=== PATIENT | female | born 1940 | race Caucasian/White ===

== ENCOUNTER 2023-05-01 14:38 | Inpatient (IN) | payer MEDICARE, OTHER, SELFPAY ==
[2023-05-01] VITALS (13 sets, daily range): BP systolic 98–139; BP diastolic 37–83; BMI 34.0; BMI 35.0
--- NOTE | 2023-05-01 08:40 | ED.GENMED ---
History of Present Illness
General
Chief Complaint: Weakness
Source: patient and ambulance crew
Exam Limitations: none
Time Seen by Provider: 05/01/23 08:39
Nursing documentation reviewed up to this point in time: agreed with
History of Present Illness
History of Present Illness:
82 yo female w h/o HTN, HLD, DE, GERD, Colitis, NIDDM, Hypothyroid, presents from home for feeling weak, frequent urination, past 2-3 days, nausea intermittently, given Zofran en route and states it has helped. States 'I was very very weak, I could
not dress myself, while I was getting dressed I had to just sit on the floor.' arrives and states she was 'sweaty and weak and could not get up of the floor, she had difficulty breathing and was wheezing.'
Denies CP, denies SOB at this time. Denies abd pain. Has had good appetite.
Past History
Past History
ED Past Medical History: GERD, HTN, Hypercholesterolemia, NIDDM, DE, Hypothyroidism, Psychiatric (Depression, Anxiety), Other (Back pain, Headaches, GI bleeding, Hiatal hernia, UTI, Cataractsm Glaucoma, Anemia, Polymyralgiarhematic) and Other
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
ED Past Surgical History: Cardiac (08/09/21 Stents X 2), Cholecystectomy, Gynecological (Hysterectomy, tubal ligation, Oophorectomy one sided), Orthopedic (Barney carpal tunnel, ), Tonsilectomy and Other (Bilateral carpal tunnel surgery)
Social History
Tobacco: Former smoker
Alcohol: Occasional
Drug: None
Personal:
Living: with family
Employment: Retired
Family History
Family History: Diabetes; Negative Early CAD
Review of Systems
Review of Systems
Allergies reviewed?: Yes
All Other Systems: ROS reviewed and negative except as documented in HPI and ROS
Constitutional: Reports fatigue; Denies fever
Respiratory: Denies trouble breathing
Cardiac: Denies chest pain or syncope
ABD/GI: Reports nausea and vomiting; Denies abdominal pain or diarrhea
: Reports frequency; Denies dysuria
Musculoskeletal: Denies edema
Skin: Reports no symptoms
Neurological: Reports no symptoms
Phy Exam
Physical Exam
Physical Exam:
GENERAL: No acute distress. A&Ox3.
CONSTITUTIONAL: Afebrile.
EYES: PERRL, conjunctivae normal
ENMT: moist mucus membranes, Pharynx nl
RESPIRATORY: Regular respirations, nonlabored, lungs clear.
CARDIOVASCULAR: Regular rate and rhythm, no murmurs, no rubs.
GI: Soft, nontender, normal BS
MUSCULOSKELETAL: Moves with ease. Well perfused. No edema
SKIN: Warm, dry, pale
PSYCH: Normal mood and affect. Well kept, interactive and appropriate
NEUROLOGIC: Awake, alert and oriented. No focal neurological deficits
Course
Orders/Labs/Results
Orders:
Orders
05/01/23
Electrocardiogram (*1) Stat
Comment: ALREADY DONE ER
05/01/23 Breakfast
1800 calorie (15 carb) Diabetic
At Your Request: Full Participation
05/01/23 08:47
Complete Blood Count/With Diff Urgent
Comprehensive Metabolic Panel Urgent
Creatine Phosphokinase Urgent
Comment: ADD ON
Glycohemoglobin (HgbA1c) Urgent
NT-proBNP Urgent
Comment: ADD ON
Troponin I Urgent
05/01/23 09:07
Lactic Acid Q4H
Comment: CANCEL 2nd LACTIC ACID IF 1st LACTIC ACID IS LESS THAN 2
Blood Culture Q30M
MAX Source: Blood/Venous
Specimen Description:
Blood Culture Q30M
MAX Source: Blood/Venous
Specimen Description:
05/01/23 09:29
CR Chest Portable - 1 View Urgent
Comment:
Reason For Exam: Weakness, elevated Troponin
Reason Study Needs to be Portable: Patient Unstable
05/01/23 09:34
Add On- LAB Urgent
Tests Added?: BNP
05/01/23 09:36
0.9% Sodium Chloride 1000 ml [Nss] 1,000 ml IV BOLUS
05/01/23 09:38
COVID-19 Antigen Urgent
Source: Nasal Swab
Influenza A+B Rapid Molecular Urgent
MAX Source: Nasal Swab
Specimen Description:
05/01/23 09:52
Add On- LAB Urgent
Tests Added?: CPK
05/01/23 09:53
Piperacillin/Tazo 3.375 Gram [Zosyn] 3.375 gram in 50 ml IV NOW
05/01/23 10:27
Urinalysis Reflex To Culture Urgent
Date Specimen was Collected: 05/01/23
Time Specimen was Collected: 10:26
Urine Microscopic Reflex Cult Urgent
Urine Culture Urgent
MAX Source: U
Specimen Description:
Date Specimen was Collected: 05/01/23
Time Specimen was Collected: 10:26
05/01/23 11:21
Vancomycin [Vancocin] 1,250 mg 0.9% Sodium Chloride 250 ml [Nss] 250 ml IV NOW
05/01/23 12:54
Lactic Acid Q4H
Comment: CANCEL 2nd LACTIC ACID IF 1st LACTIC ACID IS LESS THAN 2
05/01/23 14:08
Admit/Transfer Patient As Directed
Co-Sign Provider:
Level of Care: Inpatient admission
Assign to:: Telemetry
Physician / Group: Aliza Rashid
Diagnosis: Sepsis UTI
Reason for Telemetry: Arrhythmia
Date to Stop Telemetry: 05/04/23
Time to Stop Telemetry: 11:00
Reason for Hospitalization: Sepsis UTI
Expected length of stay greater than two midnights?: Yes
ELOS- Estimated Length of Stay in days: 2
I certify the patient meets the requirements for IP care: Yes
05/01/23 14:23
Code Status As Directed
Resuscitation Status: Full Code
05/01/23 17:37
Acetaminophen with Codeine [Tylenol #3] 1 tablet PO BID PRN
Lorazepam [Ativan] 0.5 mg PO Q6HPRN PRN
05/01/23 17:37
Activity As Directed
Activity Level: With Assistance
Intake/ Output As Directed
Frequency: Per unit guidelines
Precautions As Directed
Type of Precautions: Other
Comment: fall precautions
Vital Signs As Directed
Frequency: Per unit guidelines
Weight As Directed
Frequency: Daily
DX Deep Vein Thrombosis Video Routine
05/01/23 18:00
Enoxaparin Sodium [Lovenox] 40 mg SC QPM
Glimepiride [Amaryl] 2 mg PO QPM
Piperacillin/Tazo 3.375 Gram [Zosyn] 3.375 gram in 50 ml IV Q6
Rosuvastatin Calcium [Crestor] 20 mg PO QPM
05/01/23 20:00
Carvedilol [Coreg] 6.25 mg PO BID
05/01/23 22:00
Bimatoprost [Lumigan 0.01%] 1 drop BOTH EYES HS
Melatonin 5 mg PO HS
05/02/23 05:55
Basic Metabolic Panel IN AM
Complete Blood Count/No Diff IN AM
Magnesium IN AM
05/02/23 06:00
Levothyroxine [Synthroid] 125 mcg PO DAILY@0600
05/02/23 08:00
Aspirin Chewable [Low Strength Aspirin] 81 mg PO DAILY
Cholecalciferol (Vitamin D3) [VITAMIN D3 (cholecalciferol)] 50 mcg PO DAILY
Cyanocobalamin [Vitamin B-12] 1,000 mcg PO DAILY
Duloxetine Delayed Release [Cymbalta Delayed Release] 60 mg PO DAILY
Furosemide [Lasix] 20 mg PO DAILY
Glimepiride [Amaryl] 4 mg PO DAILY
Lactobac/Bifidobac [Visbiome] 1 cap PO DAILY
Pantoprazole [Protonix] 40 mg PO DAILY
phenazopyridine 95 mg PO DAILY
05/02/23 12:00
Calcium Carbonate [[place] 500] 1,000 mg PO NOON
Ferrous Sulfate [Feosol] 325 mg PO NOON
Vitamin B Complex with C [B COMPLEX w/VITAMIN C] 1 caplet PO NOON
05/03/23 06:00
Basic Metabolic Panel IN AM
Complete Blood Count/No Diff IN AM
Magnesium IN AM
05/04/23 06:00
Basic Metabolic Panel IN AM
Complete Blood Count/No Diff IN AM
Magnesium IN AM
05/04/23 11:00
DC Protocol for Telemetry ONCE
05/05/23 06:00
Basic Metabolic Panel IN AM
Complete Blood Count/No Diff IN AM
Magnesium IN AM
05/06/23 06:00
Basic Metabolic Panel IN AM
Complete Blood Count/No Diff IN AM
Magnesium IN AM
05/07/23 06:00
Basic Metabolic Panel IN AM
Complete Blood Count/No Diff IN AM
Magnesium IN AM
05/08/23 06:00
Basic Metabolic Panel IN AM
Complete Blood Count/No Diff IN AM
Magnesium IN AM
Abnormal Lab Results
05/01/23 05/01/23 05/01/23
08:47 09:07 10:27
Absolute Neuts (auto) 8.1 H 10^3/uL
(1.4-6.5)
Absolute Lymphs (auto) 0.4 L 10^3/uL
(1.2-3.4)
Neutrophils % 91.8 H %
(42.2-75.2)
Lymphocytes % 4.6 L %
(20.5-51.1)
Carbon Dioxide 21 L mmol/L
(22-30)
BUN 18 H mg/dl
(7-17)
Glucose 207 H mg/dl
(70-99)
Hemoglobin A1c 7.6 H %
(4.0-5.6)
Lactic Acid 3.5 H mmol/L
(0.7-2.0)
Troponin I 0.572 H* ng/ml
Total Protein 6.1 L g/dl
(6.3-8.2)
Urine Ketones 1+ A
(Negative)
Ur Occult Blood Reflex 2+ A
(Negative)
Leukocyte Esterase Rfl 2+ A
(Negative)
Urine RBC 3-6 A /HPF
(0-2)
Urine WBC (Reflex) 70-80 A /HPF
(0-5)
Urine Bacteria (Reflex) Many A
(Negative)
Urine Glucose 1+ A
(Negative)
Urine Albumin (Reflex) 1+ A
(Neg - Trace)
05/01/23 08:47
05/01/23 08:47
Vital Signs
Initial and Last Documented VS:
Initial Vital Signs
Temp Pulse Resp BP Pulse Ox
99.7 F 97 18 107/82 95
05/01/23 08:38 05/01/23 08:38 05/01/23 08:38 05/01/23 08:38 05/01/23 08:38
Last Documented Vital Signs
Temp Pulse Resp BP Pulse Ox
97.4 F 63 16 116/57 97
05/02/23 11:38 05/02/23 11:38 05/02/23 11:38 05/02/23 11:38 05/02/23 11:38
MDM/Problems Addressed
Differential Diagnosis Includes:
UTI, dehydration, DE, sepsis
MDM/Problems Addressed:
82 yo female w h/o HTN, HLD, DE, GERD, Colitis, NIDDM, Hypothyroid, presents from home for feeling weak, frequent urination, past 2-3 days, nausea intermittently, given Zofran en route and states it has helped. States 'I was very very weak, I could
not dress myself, while I was getting dressed I had to just sit on the floor.' arrives and states she was 'sweaty and weak and could not get up of the floor, she had difficulty breathing and was wheezing.'
Denies CP, denies SOB at this time. Denies abd pain. Has had good appetite.
Temp 99 4. Patient states she took Tylenol at 8:00 AM
EKG: NSR
05/01/2023 0926 AM
CBC normal
CMP with no clinically significant abnormality
Troponin elevated at 0.572 patient has no chest pain, most likely elevation due to sepsis
Lactic acid: elevated 3.5 (sepsis and dehydration most likely cause)
RN reports pulse ox 88 O2, placed on 2 L nasal cannula O2 with improved pulse ox at 95%
Patient most likely septic with shaking teeth chattering chills reported, fever, frequent urination
Treating as urosepsis for now no hypotension no tachycardia, no sign of shock
Case discussed with Dr. Young who agrees with assessment and plan
05/01/2023 1130 AM
UA: 2+ leukocytes, negative nitrates, WBC 70-80, many bacteria
Hospitalist notified of admission
Chronic conditions affecting care: DM and HTN
*Pulse Oximetry
Patient hypoxic: yes
Comment: 88% RA, placed on 2L NC O2
*EKG
EKG Intrepretation Date: 05/01/23
Interpretation: abnormal
Rate: normal
Rhythm: sinus
Machias: left axis deviation
Interval: normal interval
QRS Pattern: normal QRS
Ischemia: no ischemia
*Critical Care Note
Total Time (30-74mins, 75-104mins- exclusive of procedures): Not Applicable
ED Attending Note
-
Portions of this chart may have been created with voice recognition software.� Occasional wrong word or��sound alike� substitutions may have occurred due to the inherent limitations of voice recognition software.
Discharge Plan
Departure
Patient Disposition: Admit
Date of Disposition: 05/01/23
Time of Disposition: 11:39
Admit to: Telemetry
Presentation/result/management discussed w/ accepting MD/DO: Hospitalist
Condition: Fair
Discharge Problem:
Sepsis, Acute UTI, Elevated troponin
Interventions
Interventions:
*General Assessment Last Done: 05/01/23 08:38
*Neglect/Abuse Screening Last Done: 05/01/23 08:38
ED- Fall Risk Assessment Last Done: 05/01/23 09:04
*Nursing Disposition Last Done: 05/01/23 17:24
ED- Cardiac Assessment Last Done: 05/01/23 09:05
ED- Neurological Assessment Last Done: 05/01/23 09:05
ED- Pulmonary Assessment Last Done: 05/01/23 09:05
Discharge Date and Time
Discharge Date/Time: 05/01/23 17:30
[2023-05-01 09:04] LABS: % Basophils 0.1 % (0-2); % Eosinophils 0.1 % (0-6); % Immature Granulocytes 0.5 % (0-0.5); % Lymphocytes 4.6 % (20.5-51.1); % Monocytes 2.9 % (1.7-9.3); % Neutrophils 91.8 % (42.2-75.2); Absolute Lymphocytes 0.4 10^3/uL (1.2-3.4); Absolute Monocytes 0.3 10^3/uL (0.1-0.6); Absolute Neutrophils 8.1 10^3/uL (1.4-6.5); Hematocrit 43.8 % (37.0-47.0); Hemoglobin 14.7 g/dL (12.0-16.0); Mean Corp Hgb Conc. 33.6 g/dL (33.0-37.0); Mean Corpuscular Hgb 29.9 pg (27.0-31.0); Mean Corpuscular Volume 89.2 fL (81.0-99.0); Mean Platelet Volume 9.6 fL (7.4-10.4); Nucleated Red Blood Cells % 0 %; Platelet Count 169 10^3/uL (130-400); Red Blood Cell Count 4.91 10^6/uL (4.20-5.40); Red Cell Dist. Width 13.5 % (11.5-14.5); White Blood Cell Count 8.8 10^3/uL (4.8-10.8)
[2023-05-01 09:14] LABS: ALT (SGPT) 19 U/L (0-35); AST (SGOT) 28 U/L (14-36); Albumin 3.6 g/dl (3.5-5.0); Alkaline Phosphatase 91 U/L (38-126); Blood Urea Nitrogen 18 mg/dl (7-17); Calcium 9.5 mg/dl (8.4-10.2); Carbon Dioxide 21 mmol/L (22-30); Chloride 105 mmol/L (98-107); Estimated Creatinine Clearance 42 ml/min; Glucose 207 mg/dl (70-99); Potassium 3.5 mmol/L (3.5-5.1); Sodium 135 mmol/L (135-145); Total Bilirubin 1.3 mg/dl (0.2-1.3); Total Protein 6.1 g/dl (6.3-8.2); eGFR 56.25
[2023-05-01 09:26] LABS: Troponin I 0.572 ng/ml
[2023-05-01 09:32] LABS: Lactic Acid 3.5 mmol/L (0.7-2.0)
[2023-05-01] MEDS: NSS 1000 IV (09:42)
[2023-05-01 10:00] LABS: COVID-19 Antigen Negative (Negative)
[2023-05-01] MEDS: ZOSYN 50 IV ×3 (10:27→23:01)
[2023-05-01 10:54] LABS: Urine Albumin 1+ (Neg - Trace); Urine Bilirubin Negative (Negative); Urine Character Slightly Cloudy (Clear); Urine Color Yellow; Urine Glucose 1+ (Negative); Urine Ketone 1+ (Negative); Urine Leukocyte 2+ (Negative); Urine Nitrite Negative (Negative); Urine Occult Blood 2+ (Negative); Urine Urobilinogen Negative (Neg - 1+)
[2023-05-01 11:19] LABS: Urine Mucus Few
[2023-05-01 11:22] LABS: Urine Amorphous Seen; Urine Bacteria Many (Negative); Urine White Cell 70-80 /HPF (0-5)
[2023-05-01] MEDS: VANCOCIN 275 MG IV (12:30)
--- NOTE | 2023-05-01 12:48 | HPS.HSE ---
Family Physician
-
Family Physician: Wes Garza
Chief Complaint
-
weakness
History of Present Illness
82F HTN HLD [place] GERD Colitis NIDDM, Hypothyroid p/w weakness, urinary frequency, chills, intermittent nausea, bodyaches arthritic pain exacerbation past 2-3 days. was prompted to contact EMS when he found sitting on the floor in the
morning short of breath wheezing and unable to get up. Denied fall, loss of consciousness, trauma, constipation, diarrhea, fever, recent unexpect weight loss or weight gain. VSS, No leukocytosis noted. Mild hyperglycemia. Initial Lactic
acidosis elevation 3.5 resolved with IVF bolus. Troponin was also noted elevated 0.572 however chest pain free no acute changes noted on EKG.
Medical History
Past Medical History
Past Medical History: Reports Other (as above)
Past Surgical History: Reports Other (as above)
Social History
Tobacco: Non-smoker
Alcohol: Occasional
Drug: None
Personal:
Living: With Family
Family History
Family History: Not pertinent (reviewed)
Allergies / Home Medications
Allergies reflects when Allergies were last updated in [employer].
Home Medications with original date entered in [employer]
Allergy/Medication List:
Allergies
Allergy/AdvReac Type Severity Reaction Status Date / Time
ciprofloxacin [From Cipro] Allergy caused Verified 05/01/23 08:45
tendinitis
in right
achilles
tendon
erythromycin base Allergy abd pain Verified 05/01/23 08:45
metformin Allergy Nausea / Verified 05/01/23 08:45
Vomiting
Home Medications
vitamin B complex (B-Complex tablet) 1 tab PO NOON Supplement 11/01/07
duloxetine 60 mg capsule,delayed release 60 mg PO DAILY Neurological Condition 12/25/12
lorazepam 0.5 mg tablet 0.5 mg PO Q6HPRN PRN anxiety 09/21/20
melatonin 5 mg tablet 5 mg PO HS Sleep 09/25/20
cholecalciferol (vitamin D3) 50 mcg (2,000 unit) tablet 2,000 units PO DAILY #30 tabs 09/28/20
acetaminophen 300 mg-codeine 30 mg tablet 1 tab PO BID PRN MODERATE PAIN ##0 08/10/21
bimatoprost 0.01 % eye drops (Lumigan) 1 drp BOTH EYES HS Eye condition 08/10/21
ferrous sulfate 325 mg (65 mg iron) tablet (FeroSul) 325 mg PO NOON Supplement 08/10/21
aspirin 81 mg chewable tablet 81 mg PO DAILY 08/11/21
carvedilol 6.25 mg tablet 6.25 mg PO BID Heart disease/condition #60 tabs 08/11/21
rosuvastatin 20 mg tablet 20 mg PO QPM High cholesterol #30 tabs 08/11/21
cyanocobalamin (vitamin B-12) 1,000 mcg tablet 1,000 mcg PO DAILY #30 tabs 09/18/21
pantoprazole 40 mg tablet,delayed release (Protonix) 40 mg PO DAILY Gastrointestinal issue 12/28/21
furosemide 20 mg tablet 20 mg PO DAILY #90 tabs 12/29/21
Lactobacillus 40-Bifidobact 3-S.thermophilus 100 billion cell capsule (Probiotic) 1 cap PO DAILY 05/01/23
calcium carbonate 600 mg calcium (1,500 mg) tablet (Calcium) 1,200 mg PO NOON 05/01/23
raul (Zingiber officinalis) 550 mg capsule 550 mg PO QPM 05/01/23
glimepiride 4 mg tablet 2 mg PO QPM 05/01/23
glimepiride 4 mg tablet 4 mg PO DAILY 05/01/23
levothyroxine 125 mcg tablet 125 mcg PO DAILY 05/01/23
phenazopyridine 95 mg tablet 95 mg PO DAILY 05/01/23
semaglutide 0.25 mg or 0.5 mg (2 mg/3 mL) subcutaneous pen injector (Ozempic) 0.5 mg SC TU 05/01/23
zinc 50 mg tablet 50 mg PO NOON 05/01/23
Review of Systems
-
A 12 point ROS was completed and negative except as noted: Yes
Constitutional: Reports Other (as below)
Physical Exam
Vital Signs
Vital Signs
Temp Pulse Resp BP Pulse Ox
99.7 F 95 20 98/54 91
05/01/23 08:38 05/01/23 12:30 05/01/23 12:30 05/01/23 12:00 05/01/23 12:30
Physical Exam
General: Other (as below)
Laboratory Results
-
05/01/23 08:47
05/01/23 08:47
Laboratory Results
Lactic Acid 3.5 mmol/L (0.7-2.0) H 05/01/23 09:07
Total Bilirubin 1.3 mg/dl (0.2-1.3) 05/01/23 08:47
AST 28 U/L (14-36) 05/01/23 08:47
ALT 19 U/L (0-35) 05/01/23 08:47
Alkaline Phosphatase 91 U/L (38-126) 05/01/23 08:47
Troponin I 0.572 ng/ml H* 05/01/23 08:47
Impression/Plan
-
ROS
General: Denies fever night sweats unexpected weight loss reports chills
Neuro: Denies seizure shaking loss of consciousness dizziness vertigo
Psych: denies depression hallucinations confusion manic episodes
HEENT: Denies blindness visual disturbances epistaxis
Pulmonary: denies coughing hemoptysis sneezing reports exertional dyspnea
Cardiovascular: denies chest pain palpitations leg swelling
Hematology: denies signs symptoms of anemia easy bruising/bleeding
Gastrointestinal: reports nausea episode vomiting denies diarrhea constipation hematemesis hematochezia melena
Genito-Urinary: reports urinary frequency denies dysuria
Musculoskeletal: denies joint pain weakness
Dermatology: denies rash laceration bruising
Physical Exam
General: No pallor, cyanosis, or jaundice. Obese
HEENT: Throat clear. PERRLA Normocephalic atraumatic
NECK: Supple. No JVD Carotid Bruits
RESPIRATORY: Lungs clear to auscultation. No crackles wheezes stridor
CVS: S1, S2 normal. RRR. No murmur, rub or gallop.
ABDOMEN: Soft, non-tender. No distension. BS+/normal.
EXTREMITIES: No peripheral cyanosis or edema.
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
IMPRESSION:
82F HTN HLD [place] GERD Colitis NIDDM, Hypothyroid p/w weakness, urinary frequency, chills, intermittent nausea, bodyaches arthritic pain exacerbation past 2-3 days. was prompted to contact EMS when he found sitting on the floor in the
morning short of breath wheezing and unable to get up. Denied fall, loss of consciousness, trauma, constipation, diarrhea, fever, recent unexpect weight loss or weight gain. VSS, No leukocytosis noted. Mild hyperglycemia. Initial Lactic
acidosis elevation 3.5 resolved with IVF bolus. Troponin was also noted elevated 0.572 however chest pain free no acute changes noted on EKG.
PLAN:
#Sepsis UTI
#non-ischemic troponin elevation due to sepsis
Inpt Tele
trend Troponin to peak
Empiric abx vancomycin zosyn
follow cultures
Tylenol prn
#Lactic acidosis possibly d/t dehydration vs sepsis
resolved with IVF
#HTN
cont Coreg Lasix with Holding Parameters
#CAD
#HLD
cont statin asa
#GERD
cont protonix
#NIDDM
follow up A1c
cont glimeripide
low dose sliding scale
On Ozempic Tues
#Hypothyroid
cont home synthroid
follow up TSH reflex T4
dvt ppx Lovenox
GI ppx Protonix
meds reconciled and resumed as appropriate
Full Code
discussed with patient and her Mauricio
I spent a total of 80 minutes with the patient or on the floor. More than 50% of this time involved counseling and coordination of care.
[2023-05-01 13:17] LABS: Lactic Acid 1.4 mmol/L (0.7-2.0)
[2023-05-01 13:41] LABS: Creatine Phosphokinase 97 U/L (30-135)
[2023-05-01 13:54] LABS: NT-proBNP 840 pg/ml
[2023-05-01] MEDS: CRESTOR 20 MG PO (18:37)
[2023-05-01] MEDS: LOVENOX 40 MG SC (18:37)
[2023-05-01] MEDS: AMARYL 2 MG PO (19:04)
--- NOTE | 2023-05-01 19:16 | PHA.VAN.IN ---
Assessment
- Assessment
Renal Function: Appears similar to baseline (Slightly elevated- baseline from 2021 0.6 to 0.9)
Concomitant Antimicrobials: Piperacillin/tazobactam
AUC Dosing Plan
- Dosing Variables
Dosing Weight (kg): 81.25
Dosing CrCl (ml/min): 41
Vd coefficient (L/kg): 0.7
- Empiric Dosing
Initial / Loading Dose: Vancomycin 1250mg IV on 05/01/23 at 1230
Maintenance Regimen: Vancomycin 1000mg IV Q24h to start 05/01 at 0600
Estimated AUC (mcg*h/mL): 464
Estimated Peak (mcg*h/mL): 29
Estimated Trough (mcg/ml): 12
Estimated Half Life (H): 18
- Monitoring
No levels ordered at this time: Will f/u and order levels prior to steady state.
Pharmacokinetics Vancomycin I
- -
Patient Age: 82
Patient Sex: Female
Vancomycin Day #: 1
Indication: Genito-Urinary Tract
Requesting Provider: Dr. Rashid
Pertinent Antimicrobial Allergies:
ciprofloxacin [From Cipro] Allergy (Verified 05/01/23 08:45)
caused tendinitis in right achilles tendon
erythromycin base Allergy (Verified 05/01/23 08:45)
abd pain
Height / Weight:
Height 5 ft
Actual Weight 81.25 kg
Pertinent Past Medical History: BMI ~35
- Vital Signs / Lab Results
Temp Pulse Resp BP Pulse Ox
98.6 F 84 18 139/66 97
05/01/23 17:30 05/01/23 17:30 05/01/23 17:30 05/01/23 17:30 05/01/23 17:30
Lab Results - Hematology
05/01/23
08:47
WBC 8.8
Lab Results - Chemistry
05/01/23
08:47
BUN 18 H
Creatinine 1.0
Estimated Creat Clear 42
Albumin 3.6
05/01/23 05/01/23
09:07 12:54
Lactic Acid 3.5 H 1.4
Lab Results - Urine
05/01/23
10:27
Urine Nitrite (Reflex) Negative
Leukocyte Esterase Rfl 2+ A
Urine WBC (Reflex) 70-80 A
Ur Squamous Epith Cells 3-5
Urine Bacteria (Reflex) Many A
Microbiology Results
05/01/23 09:38 Influenza Types A & B (EMELYN) - Final
Nasal Swab Negative for Influenza A & B, NAAT
Negative results must be combined with clinical observations
and patient history.
Nucleic Acid Amplification test (NAAT)performed on the
[employer] platform.
[2023-05-01] MEDS: COREG 6.25 MG PO (20:15)
[2023-05-01] MEDS: LUMIGAN 0.01% 1 DROP BOTH EYES (22:06)
[2023-05-01] MEDS: MELATONIN 5 MG PO (22:06)
[2023-05-02 03:00] VITALS: BP 105/56
[2023-05-02] MEDS: ZOSYN 50 IV ×3 (05:52→17:51)
[2023-05-02] MEDS: SYNTHROID 125 MCG PO (05:53)
[2023-05-02 06:00] VITALS: BMI 35.0
[2023-05-02 06:12] LABS: Hematocrit 36.1 % (37.0-47.0); Hemoglobin 12.3 g/dL (12.0-16.0); Mean Corp Hgb Conc. 34.1 g/dL (33.0-37.0); Mean Corpuscular Hgb 29.8 pg (27.0-31.0); Mean Corpuscular Volume 87.4 fL (81.0-99.0); Mean Platelet Volume 9.7 fL (7.4-10.4); Platelet Count 152 10^3/uL (130-400); Red Blood Cell Count 4.13 10^6/uL (4.20-5.40); Red Cell Dist. Width 13.5 % (11.5-14.5)
[2023-05-02] MEDS: VANCOCIN 200 IV (06:29)
[2023-05-02 06:46] LABS: Blood Urea Nitrogen 24 mg/dl (7-17); Calcium 8.4 mg/dl (8.4-10.2); Carbon Dioxide 25 mmol/L (22-30); Chloride 101 mmol/L (98-107); Estimated Creatinine Clearance 37 ml/min; Glucose 213 mg/dl (70-99); Magnesium 1.8 mg/dl (1.6-2.3); Phosphorus 3.3 mg/dl (2.5-4.5); Potassium 3.6 mmol/L (3.5-5.1); Sodium 134 mmol/L (135-145); eGFR 50.17
[2023-05-02 07:14] LABS: TSH Reflex To Free T4 0.68 uIU/ml (0.47-4.68)
[2023-05-02 07:22] VITALS: BP 113/57
--- NOTE | 2023-05-02 07:34 | W.PN.HOSP.TC ---
Today's Communication/Plan
-
cont abx
IVF gentle hydration, pending CT abd/pelvis with Contrast
Cardio ID eval requested
trend Troponin
glycemic control
Assessment / Plan
Assessment / Plan
Physical Exam
General: No pallor, cyanosis, or jaundice. Obese. no acute distress but appears unwell/uncomfortable denies chest pain
HEENT: Throat clear. PERRLA Normocephalic atraumatic
NECK: Supple. No JVD Carotid Bruits
RESPIRATORY: Lungs clear to auscultation. No crackles wheezes stridor, on Nasal cannula 2L
CVS: S1, S2 normal. RRR.� No murmur, rub or gallop.
ABDOMEN: Soft, non-tender. No distension. BS+/normal.
EXTREMITIES: No peripheral cyanosis or edema.
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
IMPRESSION:
82F HTN HLD [place] 2021 two stents placed GERD Colitis NIDDM, Hypothyroid p/w weakness, urinary frequency, chills, intermittent nausea, bodyaches arthritic pain exacerbation past 2-3 days.� was prompted to contact EMS when he found sitting
on the floor in the morning short of breath wheezing and unable to get up.� Denied fall, loss of consciousness, trauma, constipation, diarrhea, fever, recent unexpect weight loss or weight gain.� VSS,� No leukocytosis noted.� Mild hyperglycemia.�
Initial Lactic acidosis elevation 3.5 resolved with IVF bolus.� Troponin was also noted elevated 0.572 however chest pain free no acute changes noted on EKG.
PLAN:
#Sepsis UTI
#non-ischemic troponin elevation due to sepsis
#Hx CAD GA 2021 two stents placed
Inpt Tele
trend Troponin to peak, significant elevation in AM noted 3.310 from 0.572, remains chest pain free, VSS, repeat EKG noted new T wave inversions anterior lead compared with EKG on admission, otherwise no acute ST elevations or depressions noted
Cardio eval requested
Empiric abx vancomycin zosyn
follow cultures prelim positive blood, pending identification, blood cultures repeated
ID eval requested
Tylenol prn
#Lactic acidosis possibly d/t dehydration vs sepsis
resolved with IVF
#HTN
cont Coreg Lasix with Holding Parameters
#CAD
#HLD
cont statin asa
#GERD
cont protonix
#NIDDM
follow up A1c
cont glimeripide
low dose sliding scale
On Ozempic Tues
#Hypothyroid
cont home synthroid
follow up TSH reflex T4
dvt ppx Lovenox
GI ppx Protonix
Full Code
I spent a total of � 55 � minutes with the patient or on the floor. More than 50% of this time involved counseling and coordination of care.
Anticipated Discharge: > 48 hours
Subjective/Interval History
-
Date of Service: May 02, 2023
General malaise poor appetite denies chest pain.
Objective Data
-
Labs:
Laboratory Results
05/02/23
05:55
WBC 14.0 H
Hgb 12.3
Hct 36.1 L
Plt Count 152
Sodium 134 L
Potassium 3.6
Chloride 101
Carbon Dioxide 25
BUN 24 H
Creatinine 1.1 H
Glucose 213 H
Calcium 8.4
Vital Signs:
Vital Signs
Temp Pulse Resp BP Pulse Ox
100.4 F H 77 18 105/56 99
05/02/23 03:00 05/02/23 03:00 05/02/23 03:00 05/02/23 03:00 05/02/23 03:00
I&O
05/01/23 05/02/23 05/03/23
05:59 06:59 06:59
Intake Total
Balance
[2023-05-02 07:42] LABS: Glucose - Point of Care 240 mg/dl (70-99)
[2023-05-02] MEDS: TYLENOL 650 MG PO ×2 (08:26→17:51)
[2023-05-02] MEDS: AMARYL 4 MG PO (08:27)
[2023-05-02] MEDS: LASIX 20 MG PO (08:27)
[2023-05-02] MEDS: VISBIOME 1 CAP PO (08:27)
[2023-05-02] MEDS: VITAMIN D3 (cholecalciferol) 50 MCG PO (08:27)
[2023-05-02] MEDS: NOVOLOG FLEXPEN-LOW RESISTANCE 2 UNITS SC ×3 (08:27→17:52)
[2023-05-02] MEDS: PROTONIX 40 MG PO (08:27)
[2023-05-02] MEDS: COREG 6.25 MG PO ×2 (08:27→22:46)
[2023-05-02] MEDS: LOW STRENGTH ASPIRIN 81 MG PO (08:27)
[2023-05-02] MEDS: CYMBALTA DELAYED RELEASE 60 MG PO (08:27)
[2023-05-02] MEDS: VITAMIN B-12 1000 MCG PO (08:27)
[2023-05-02] MEDS: NSS 1000 IV ×2 (08:40→20:03)
[2023-05-02 09:51] LABS: Glycohemoglobin (HgbA1c) 7.6 % (4.0-5.6)
--- NOTE | 2023-05-02 10:52 | PHA.VAN.FU ---
Vancomycin Assessment / Plan
- Assessment
Renal Function: SCR Increasing (1.0->1.1)
WBC's are: Trending Up (8.8->14.0)
In the past 24 hrs, patient has been: Febrile (100.4)
Concomitant Antimicrobials: piperacillin/tazobactam
- Dosing Plan
Continue: vancomycin 1000 mg q24h (1st maint dose 05/01 06)
- Monitoring Plan
No level(s) ordered at this time: watch SCr - consider levels in a day or two
- Follow Up
Pharmacy will continue to follow.
Vancomycin Follow UP
- -
Patient Age: 82
Patient Sex: Female
Vancomycin Day #: 2
Indication: Genito-Urinary Tract
Requesting Provider: Dr. Rashid
Pertinent Antimicrobial Allergies:
ciprofloxacin [From Cipro] Allergy (Verified 05/01/23 08:45)
caused tendinitis in right achilles tendon
erythromycin base Allergy (Verified 05/01/23 08:45)
abd pain
Height / Weight:
Height 5 ft
Actual Weight 81.193 kg
Pertinent Past Medical History: BMI ~35
- Vital Signs / Lab Results
Temp Pulse Resp BP Pulse Ox
98.8 F 72 18 113/57 99
05/02/23 07:22 05/02/23 07:22 05/02/23 07:22 05/02/23 07:22 05/02/23 07:22
Lab Results - Hematology
05/01/23 05/02/23
08:47 05:55
WBC 8.8 14.0 H
Lab Results - Chemistry
05/01/23 05/02/23
08:47 05:55
BUN 18 H 24 H
Creatinine 1.0 1.1 H
Estimated Creat Clear 42 37
Albumin 3.6
05/01/23 05/01/23
09: 12:54
Lactic Acid 3.5 H 1.4
Lab Results - Urine
05/01/23
10:27
Urine Nitrite (Reflex) Negative
Leukocyte Esterase Rfl 2+ A
Ur Squamous Epith Cells 3-5
Microbiology Results
05/01/23 09:07 Blood Culture - Preliminary
Blood/Venous Positive culture in progress
Gram Stain - Final
05/01/23 09:07 Blood Culture - Preliminary
Blood/Venous Escherichia coli
Gram Stain - Preliminary
05/01/23 10:27 Urine Culture - Preliminary
Urine Gram negative bacilli
05/01/23 09:38 Influenza Types A & B (EMELYN) - Final
Nasal Swab Negative for Influenza A & B, NAAT
Negative results must be combined with clinical observations
and patient history.
Nucleic Acid Amplification test (NAAT)performed on the
[employer] platform.
[2023-05-02 11:38] VITALS: BP 116/57
[2023-05-02 11:52] LABS: Glucose - Point of Care 276 mg/dl (70-99)
--- NOTE | 2023-05-02 12:05 | CHAP ---
Cata was in good spirits - greeted me with a hetal smile. 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 We prayed together, asking God's blessings and thanking Him for his goodness.
--- NOTE | 2023-05-02 12:24 | CON.CAR ---
Consultation
Consultation Request
Date/Time Consultation Requested: 05/02/2023 7: 00
Date/Time Consultation Performed: 05/02/2023 9: 00
Requesting Provider: Rachid
Performing Provider: Shaista
Reason for Consultation: Elevated troponin
Medical History
-
Chief Complaint: Weakness, frequent urination, nausea
History of Present Illness:
Cata has a history of inferior wall [place] on August 09, 2021 status post 2 drug-eluting stents to distal PDA complicated by ischemic cardiomyopathy with ejection fraction of 45% with subsequently normalized. She has a history of near syncope,
hypertension, lipidemia, diabetes, hypothyroidism, GERD.
She presents with weakness frequent urination and nausea. contacted EMS when he found sitting on the floor short of breath and wheezing and unable to get up. She is admitted with sepsis and UTI and cardiology is consulted for elevated
troponin. She denies any chest pain or shortness of breath at the present time. She denies chest pain or short of breath at home as well.
Past Medical History
Past Medical History: GERD, HTN, Hypercholesterolemia, Hypothyroidism, Psychiatric (Anxiety) and Other (Rheumatoid arthritis)
Past Surgical History: Cholecystectomy (), Gynecological (Tubal ligation 1975, partial hysterectomy 1980), Tonsilectomy (1946) and Other (Right cataract 2019)
Social History
Tobacco: Non-Smoker
Alcohol: None
Drug: None
Personal:
Living: With Family
Employment: Retired
Family History
Family History: Other (No family history of premature coronary artery disease. Father of bladder cancer)
Allergies / Home Medications
Allergy/AdvReac Type Severity Reaction Status Date / Time
ciprofloxacin [From Cipro] Allergy caused Verified 05/01/23 08:45
tendinitis
in right
achilles
tendon
erythromycin base Allergy abd pain Verified 05/01/23 08:45
metformin Allergy Nausea / Verified 05/01/23 08:45
Vomiting
Medication Instructions Recorded Confirmed Type
vitamin B complex (B-Complex 1 tab PO NOON Supplement 11/01/07 05/01/23 History
tablet)
duloxetine 60 mg capsule,delayed 60 mg PO DAILY Neurological 12/25/12 05/01/23 History
release Condition
lorazepam 0.5 mg tablet 0.5 mg PO Q6HPRN PRN anxiety 09/21/20 05/01/23 History
melatonin 5 mg tablet 5 mg PO HS Sleep 09/25/20 05/01/23 History
cholecalciferol (vitamin D3) 50 2,000 units PO DAILY #30 tabs 09/28/20 05/01/23 Rx
mcg (2,000 unit) tablet
acetaminophen 300 mg-codeine 30 mg 1 tab PO BID PRN MODERATE PAIN ##0 08/10/21 05/01/23 History
tablet
bimatoprost 0.01 % eye drops 1 drp BOTH EYES HS Eye condition 08/10/21 05/01/23 History
(Lumigan)
ferrous sulfate 325 mg (65 mg 325 mg PO NOON Supplement 08/10/21 05/01/23 History
iron) tablet (FeroSul)
aspirin 81 mg chewable tablet 81 mg PO DAILY 08/11/21 05/01/23 Rx
carvedilol 6.25 mg tablet 6.25 mg PO BID Heart 08/11/21 05/01/23 Rx
disease/condition #60 tabs
rosuvastatin 20 mg tablet 20 mg PO QPM High cholesterol #30 08/11/21 05/01/23 Rx
tabs
cyanocobalamin (vitamin B-12) 1,000 mcg PO DAILY #30 tabs 09/18/21 05/01/23 Rx
1,000 mcg tablet
pantoprazole 40 mg tablet,delayed 40 mg PO DAILY Gastrointestinal 12/28/21 05/01/23 History
release (Protonix) issue
furosemide 20 mg tablet 20 mg PO DAILY #90 tabs 12/29/21 05/01/23 Rx
Lactobacillus 40-Bifidobact 1 cap PO DAILY Supplement 05/01/23 05/01/23 History
3-S.thermophilus 100 billion cell
capsule (Probiotic)
calcium carbonate 600 mg calcium 1,200 mg PO NOON Supplement 05/01/23 05/01/23 History
(1,500 mg) tablet (Calcium)
raul (Zingiber officinalis) 550 550 mg PO QPM Supplement 05/01/23 05/01/23 History
mg capsule
glimepiride 4 mg tablet 2 mg PO QPM Diabetes 05/01/23 05/01/23 History
glimepiride 4 mg tablet 4 mg PO DAILY Diabetes 05/01/23 05/01/23 History
levothyroxine 125 mcg tablet 125 mcg PO DAILY Thyroid 05/01/23 05/01/23 History
pumpkin seed extract-soy germ 300 1 cap PO DAILY Urinary Issue 05/01/23 05/01/23 History
mg capsule (Azo Bladder Control)
semaglutide 0.25 mg or 0.5 mg (2 0.5 mg SC TU Diabetes 05/01/23 05/01/23 History
mg/3 mL) subcutaneous pen injector
(Ozempic)
zinc 50 mg tablet 50 mg PO NOON Supplement 05/01/23 05/01/23 History
Review of Systems
-
History Source: Patient
All other systems: Negative unless noted
Constitutional: No Symptoms
EENT: No Symptoms
Respiratory: Trouble Breathing
Cardiac: No Symptoms
Abdomen/GI: Nausea
: Frequency
Musculoskeletal: No Symptoms
Skin: No Symptoms
Neurological: Weakness
Endocrine: No Symptoms
Hematologic/Lymphatic: No Symptoms
Physical Exam
Vital Signs
Temp Pulse Resp BP Pulse Ox
97.4 F 63 16 116/57 97
05/02/23 11:38 05/02/23 11:38 05/02/23 11:38 05/02/23 11:38 05/02/23 11:38
Lab Results
05/02/23 05:55
05/02/23 05:55
Troponin I 3.310 ng/ml H* 05/02/23 05:55
Ooz-N-Hzafededbuy Pept 840 pg/ml 05/01/23 08:47
General: Well developed, well nourished in NAD.
Neck: Supple, no JVD, HJR, carotids +2 B/L, no bruits bilaterally.
Heart: Non displaced PMI, RRR, no murmurs, No S3, S4, no rubs.
Lungs: Scattered rhonchi
Extremities: No clubbing, cyanosis or edema bilaterally.
Neuro: Grossly nonfocal, awake, alert and oriented x3.
Impression / Plan
-
Admission with UTI and possible sepsis
Nonischemic myocardial injury with peak troponin of 3.3
h/o inf [place] in July 2021 status post PDA stent
Residual CAD on catheterization in July 2021 and not felt to be bypass candidate due to poor distal targets
Admission for GI bleed in August 2021
Diabetes
Hypertension
Hypercholesterolemia
Recurrent UTIs and Jardiance was discontinued
History of diastolic CHF
Allergies to ROSALINDA inhibitor and multiple other medications
Echocardiogram 08/11/2021: Ejection fraction 45%, mid and distal inferior, mid and distal lateral, and mid inferolateral akinesis.
Cardiac catheterization August 09, 2021: Successful stenting of occluded mid PDA, multivessel coronary artery disease with 60% distal left main, calcified 40 to 50% proximal LAD and 80 to 90% mid LAD beyond the second diagonal branch, 80% mid
circumflex beyond OM1 and 90% proximal stenosis of OM 2, apical hypokinesis
Plan:
She is admitted with sepsis and possible UTI
Troponins are elevated without chest pain and ECG is unremarkable
Will check echocardiogram
Continue to track troponin
No signs or symptoms of CHF at present but is getting IV fluids and need to follow closely
proBNP is only 800 and chest x-ray is okay
Continue antibiotics for UTI/sepsis
Data Reviewed
-
EKG: Tracing Personally Visualized and interpreted
Radiology: Report Reviewed by me
CT Scan: Report Reviewed by me
Medical Tests (Nuc Med, Echo etc): Report Reviewed by me
Labs: Labs Reviewed by me
Old Records: Reviewed
[2023-05-02 12:46] LABS: Glucose - Point of Care 240 mg/dl (70-99)
[2023-05-02] MEDS: FEOSOL 325 MG PO (13:34)
[2023-05-02] MEDS: B COMPLEX w/VITAMIN C 1 CAPLET PO (13:34)
[2023-05-02] MEDS: OSCAL CAL 500 1000 MG PO (13:34)
--- NOTE | 2023-05-02 14:30 | CON.ID ---
Consultation
-
Date/Time Consultation Requested: 05/02/2023 08:19
Date/Time Consultation Performed: 05/02/2023 1420
Requesting Provider: Dr. Rashid
Performing Provider: Dr. Brooks
Reason for Consultation: Complicated urinary tract infection
Chief Complaint / Past History
History of Present Illness
Cata Flores is an 82-year-old female being evaluated at the request of Dr. Rashid in regards to a complicated urinary tract infection. History is obtained from chart review, along with patient interview. Additional history was obtained from the
patient's and daughter who are present at the bedside.
The patient presents to [facility] on 05/01/2023 from home secondary to generalized weakness and 2 to 3 days of frequent urination along with intermittent nausea. She denied any shortness of breath or chest pain or abdominal pain in the ER.
On the day of admission she was getting dressed, but felt somewhat dizzy and generally weak and sat on the floor to put on her undergarments. Thereafter, she could not get herself up, and her could not get her up either. At this point in
time she was also reporting sweating and with chills and rigors. EMS was called and on the way to the hospital she had an episode of vomiting.
Workup initially did not reveal a elevated white count, but she did have a left shift. Urinalysis has shown significant pyuria, and a urine culture is now revealing growth of gram-negative rods. Additionally, blood cultures obtained at admission
now revealed the presence of E. coli, and Infectious Diseases is asked to comment upon further antibiotic therapy.
Currently she denies any dysuria or hematuria, and reports no prior symptoms other than some urinary frequency. At present, she notes diffuse and intermittent pain across her shoulders, but denies any flank pain.
Past History
Additional Past Medical History:
GERD
HTN
Dyslipidemia
DM
CAD; Hx NC
Hypothyroidism
Anxiety/depression
Chronic back pain
GI bleed
UTI
Cataracts
Glaucoma
Anemia
Polymyalgia rheumatica
Additional Past Surgical History:
PCTA with stenting
Cholecystectomy
Hysterectomy/tubal ligation/oophorectomy
Bilateral carpal tunnel release
Tonsillectomy
Allergy History:
ciprofloxacin [From Cipro] Allergy (Verified 05/01/23 08:45)
caused tendinitis in right achilles tendon
erythromycin base Allergy (Verified 05/01/23 08:45)
abd pain
metformin Allergy (Verified 05/01/23 08:45)
Nausea / Vomiting
Medications Reviewed: Yes
Current Antibiotics:
Vancomycin
Zosyn 3.375 g IV every 6 hours
Social History
Tobacco: Former Smoker
Alcohol: Occasional
Drug: None
Personal:
Living: With Family
Employment: Retired
Family History
Family History: Not Pertinent
Review of Systems
Vital Signs
Temp Pulse Resp BP Pulse Ox
97.4 F 63 16 116/57 97
05/02/23 11:38 05/02/23 11:38 05/02/23 11:38 05/02/23 11:38 05/02/23 11:38
Physical Exam
Physical Exam
Constitutional: No Acute Distress, Comfortable, Chronically Ill and Non-toxic
Eyes: Pupils Equal, Pupils Round, No Conjunctival Hemorrhage and Sclera Anicteric
Oral: No Thrush and No Ulcers
Cardiovascular: S1/S2; Negative S3/S4 or Murmur
Pulmonary: Non Labored; Negative Wheezes, Rales or Rhonchi
Gastrointestinal: Soft, Non Tender, Non Distended, Normal Bowel Sounds, No Rebound and No Guarding
Genito-Urinary: Negative [place]
Extremities: Edema; Negative Cyanosis or Erythema
Musculoskeletal: Negative Joint Swelling or Joint Effusion
Neurological: Awake, Alert and Oriented
Psychological: Calm
.
Lab / Diagnostic Study Results
03/10/24 05:55
05/02/23 05:55
Abs Immat Gran (auto) 0.0 10^3/uL (0-0.05) 05/01/23 08:47
Absolute Neuts (auto) 8.1 10^3/uL (1.4-6.5) H 05/01/23 08:47
Absolute Lymphs (auto) 0.4 10^3/uL (1.2-3.4) L 05/01/23 08:47
Absolute Monos (auto) 0.3 10^3/uL (0.1-0.6) 05/01/23 08:47
Absolute Basos (auto) 0.0 10^3/uL (0-0.2) 05/01/23 08:47
Immature Gran % 0.5 % (0-0.5) 05/01/23 08:47
Neutrophils % 91.8 % (42.2-75.2) H 05/01/23 08:47
Lymphocytes % 4.6 % (20.5-51.1) L 05/01/23 08:47
Monocytes % 2.9 % (1.7-9.3) 05/01/23 08:47
Eosinophils % 0.1 % (0-6) 05/01/23 08:47
Basophils % 0.1 % (0-2) 05/01/23 08:47
Lactic Acid 1.4 mmol/L (0.7-2.0) 05/01/23 12:54
Ur Squamous Epith Cells 3-5 /LPF (Few) 05/01/23 10:27
Microbiology Results
Micro:
05/02/23 08:31 Blood Culture - Pending
Blood/Venous
05/01/23 09:07 Blood Culture - Preliminary
Blood/Venous Positive culture in progress
Gram Stain - Final
05/01/23 09:07 Blood Culture - Preliminary
Blood/Venous Escherichia coli
Gram Stain - Preliminary
05/01/23 10:27 Urine Culture - Preliminary
Urine Gram negative bacilli
05/02/23 08:27 Blood Culture - Pending
Blood/Venous
05/01/23 09:38 Influenza Types A & B (EMELYN) - Final
Nasal Swab Negative for Influenza A & B, NAAT
Negative results must be combined with clinical observations
and patient history.
Nucleic Acid Amplification test (NAAT)performed on the
[employer] platform.
Imaging:
05/02/2023 CT abdomen/pelvis with IV contrast: Small amount of ascites is noted in the left paracolic gutter. Patient is status postcholecystectomy. Kidneys are noted to be normal without hydronephrosis. Please see full dictation for additional
detail.
Assessment / Plan
Complicated urinary tract infection
Bacteremia with E. coli; likely secondary to above
Leukocytosis
Fever
Elevated troponin
GERD
HTN
Dyslipidemia
DM
CAD; Hx NC
Hypothyroidism
Anxiety/depression
Chronic back pain
GI bleed
UTI
Cataracts
Glaucoma
Anemia
Polymyalgia rheumatica
Recommendations:
Continue with Zosyn for the present.
Given recovery of E. coli in the blood, further vancomycin can be discontinued.
Repeat blood cultures have been ordered; will follow.
Await further culture data to guide antimicrobial selection and de-escalation.
Follow white count and temperature curve.
--- NOTE | 2023-05-02 14:55 | CM ---
IA completed with pt at bedside.
Pt is an 82yr old female admitted with UTI/Sepsis.
At baseline, pt is indep, driving, and lives with her in a 3 level home.
There are 3 steps to enter from the side entrance and 5 from the front. Bedroom is on the second floor. There is a 1st floor bath.
Pt was independent with mobility within the home but used a walker and/or cane in the community. They also have a shower bench.
Pt has no hx of VN/SNF.
Pharm; [facility]
PCP; Wes Garza
PLAN; Watch for needs. Currently on O2 which is new. Feels new weakness
[2023-05-02 15:25] VITALS: BP 115/60
[2023-05-02 17:47] LABS: Glucose - Point of Care 241 mg/dl (70-99)
[2023-05-02] MEDS: CRESTOR 20 MG PO (17:51)
[2023-05-02] MEDS: AMARYL 2 MG PO (17:51)
[2023-05-02] MEDS: LOVENOX 40 MG SC (17:52)
[2023-05-02 19:40] VITALS: BP 126/57
[2023-05-02 21:20] LABS: Glucose - Point of Care 259 mg/dl (70-99)
[2023-05-02] MEDS: MELATONIN 5 MG PO (22:46)
[2023-05-02] MEDS: IMODIUM 2 MG PO (22:46)
[2023-05-02] MEDS: LUMIGAN 0.01% 1 DROP BOTH EYES (22:46)
[2023-05-02 23:15] VITALS: BP 124/63
[2023-05-03] MEDS: ZOSYN 50 IV ×5 (00:12→23:01)
[2023-05-03 03:06] VITALS: BP 108/55
[2023-05-03] MEDS: SYNTHROID 125 MCG PO (05:25)
[2023-05-03 07:25] VITALS: BP 124/63
[2023-05-03 07:50] LABS: Glucose - Point of Care 104 mg/dl (70-99)
[2023-05-03 08:48] LABS: Hemoglobin 11.8 g/dL (12.0-16.0); Mean Corp Hgb Conc. 33.7 g/dL (33.0-37.0); Mean Corpuscular Hgb 29.6 pg (27.0-31.0); Mean Corpuscular Volume 87.7 fL (81.0-99.0); Mean Platelet Volume 10.2 fL (7.4-10.4); Platelet Count 144 10^3/uL (130-400); Red Blood Cell Count 3.99 10^6/uL (4.20-5.40); Red Cell Dist. Width 13.4 % (11.5-14.5); White Blood Cell Count 6.9 10^3/uL (4.8-10.8)
[2023-05-03] MEDS: NOVOLOG FLEXPEN-LOW RESISTANCE SC (08:56)
[2023-05-03] MEDS: LASIX 20 MG PO (08:57)
[2023-05-03] MEDS: VITAMIN D3 (cholecalciferol) 50 MCG PO (08:57)
[2023-05-03] MEDS: LOW STRENGTH ASPIRIN 81 MG PO (08:57)
[2023-05-03] MEDS: AMARYL 4 MG PO (08:57)
[2023-05-03] MEDS: CYMBALTA DELAYED RELEASE 60 MG PO (08:57)
[2023-05-03] MEDS: VITAMIN B-12 1000 MCG PO (08:57)
[2023-05-03] MEDS: PROTONIX 40 MG PO (08:57)
[2023-05-03] MEDS: VISBIOME 1 CAP PO (08:57)
[2023-05-03] MEDS: COREG 6.25 MG PO ×2 (08:58→21:29)
--- NOTE | 2023-05-03 09:09 | W.PN.HOSP.TC ---
Today's Communication/Plan
-
Continue IV antibiotics. Stop IV fluids.
Assessment / Plan
Assessment / Plan
Physical Exam
General: No pallor, cyanosis, or jaundice. Obese. no acute distress but appears unwell/uncomfortable denies chest pain
HEENT: Throat clear. PERRLA Normocephalic atraumatic
NECK: Supple. No JVD Carotid Bruits
RESPIRATORY: Lungs clear to auscultation. No crackles wheezes stridor, on Nasal cannula 2L
CVS: S1, S2 normal. RRR.� No murmur, rub or gallop.
ABDOMEN: Soft, non-tender. No distension. BS+/normal.
EXTREMITIES: No peripheral cyanosis or edema.
SENIOR CORPORATE STRATEGY MANAGER: AOx3, no neuro-deficits
A/P:
#Sepsis UTI/ E Coli bacteremia from source, complicated UTI
#non-ischemic troponin elevation due to sepsis
#Hx CAD MD 2021 two stents placed
Cont Telemetry
trend Troponin to peak, significant elevation in AM noted 3.310 from 0.572, remains chest pain free, VSS, repeat EKG noted new T wave inversions anterior lead compared with EKG on admission, otherwise no acute ST elevations or depressions noted.
Trop down to 2.7 from 3.3--> echocardiogram pending.
Cardio eval appreciated
Cont abx zosyn
Stopped Vanco
follow cultures prelim positive blood, pending identification, blood cultures repeated--> E. coli in blood and urine. Repeated blood cultures no growth.
ID eval appreciated
Tylenol prn
CT of the abdomen unremarkable for acute findings
Updated daughter at bedside
PT OT eval pending
#Diarrhea
C. difficile negative
Start Imodium as needed
Encourage oral intake and monitor electrolytes and renal function
#Hypokalemia
Replete and trend
# Anemia
Hb 11.8 today
#Lactic acidosis possibly d/t dehydration vs sepsis
resolved with IVF--> stop IV fluids today. Encourage oral intake
#HTN
cont Coreg Lasix with Holding Parameters
#CAD
#HLD
cont statin asa
#GERD
cont protonix
#NIDDM
follow up A1c-->7.6
cont glimeripide
low dose sliding scale
On Ozempic Tues
#Hypothyroid
cont home synthroid
follow up TSH reflex T4--> TSH 0.68
dvt ppx Lovenox
GI ppx Protonix
Full Code
I spent a total of � 55 � minutes with the patient or on the floor. More than 50% of this time involved counseling and coordination of care.
Anticipated Discharge: 24 - 48 hours
Subjective/Interval History
-
Date of Service: May 03, 2023
Patient with generalized weakness and does not feel well overall but better than admission. Denies chest pain. She has some diarrhea. No nausea or vomiting. Able to eat and drink. Afebrile
Objective Data
-
Labs:
Laboratory Results
05/03/23
08:31
WBC 6.9
Hgb 11.8 L
Hct 35.0 L
Plt Count 144
Sodium Pending
Potassium Pending
Chloride Pending
Carbon Dioxide Pending
BUN Pending
Creatinine Pending
Glucose Pending
Calcium Pending
Vital Signs:
Vital Signs
Temp Pulse Resp BP Pulse Ox
99.0 F 73 16 124/63 97
05/03/23 07:25 05/03/23 07:25 05/03/23 07:25 05/03/23 07:25 05/03/23 07:25
I&O
05/02/23 05/03/23 05/04/23
06:59 06:59 06:59
Intake Total 1580 / 1580
Balance 1580 / 1580
Review of Systems
-
All other systems: Reviewed and negative
[2023-05-03 09:16] LABS: Blood Urea Nitrogen 15 mg/dl (7-17); Calcium 8.3 mg/dl (8.4-10.2); Carbon Dioxide 24 mmol/L (22-30); Chloride 104 mmol/L (98-107); Estimated Creatinine Clearance 41 ml/min; Glucose 113 mg/dl (70-99); Magnesium 1.7 mg/dl (1.6-2.3); Phosphorus 2.6 mg/dl (2.5-4.5); Potassium 3.4 mmol/L (3.5-5.1); Sodium 135 mmol/L (135-145); eGFR 56.25
[2023-05-03 11:15] VITALS: BP 150/71
[2023-05-03] MEDS: ATIVAN 0.5 MG PO (11:15)
[2023-05-03] MEDS: IMODIUM 2 MG PO ×2 (11:15→21:29)
--- NOTE | 2023-05-03 11:19 | W.PN.CARDCBS ---
Addendum entered and electronically signed by Ángela Flores DO 05/03/23 17:34:
I saw and examined the patient.
The Proof Clerk's note was reviewed and I agree with the note.
Comment: Patient seen and examined. Chart and telemetry reviewed.
GEN: NAD
HEENT: mmm
LUNGS: CTA, no wheezes/rales
CV: Reg, S1/S2, no murmur, rubs or gallops
ABD: soft, BS+, NT/ND
EXT: No edema
Plan:
She is admitted 05/01/2023 with with weakness, urinary frequency, chills, intermittent nausea, body aches x 2-3 days
-E. coli sepsis with + BC and UTI. ID following.
-Continue with Zosyn.
Abnormal troponin, peaked 3.3 in the setting of bacteremia/sepsis
-No chest pain
-Twelve-lead EKG sinus rhythm with moderate voltage criteria for LVH and LAD. Anterolateral infarct with new T wave inversions in the anterior leads when compared to prior
-History of multivessel coronary artery disease including distal left main disease status post stenting of occluded mid PDA in 2021
-Echocardiogram pending
-Recommend eventual ischemic evaluation once she has recovered from sepsis/bacteremia, left heart cath versus stress test pending clinical course
-No signs or symptoms of CHF at present following IV hydration. Stop IV fluids.
-Continue aspirin
-Continue PO Lasix 20 mg daily and Coreg. Continue rosuvastatin; check lipid profile.
-Hypokalemia, K+ 3.4. Will replete
Original Note:
Today's Communication / Plan
-
Replete K+
Continue with Zosyn per ID
Echo pending
Impression / Plan
-
Family Physician:� Wes Garza
Construction Controller: Dr. Noonan
Impression:
Presented 05/01/2023 with weakness, urinary frequency, chills, intermittent nausea, body aches x 2-3 days
Acute UTI and sepsis
E. coli bacteremia on BC
Nonischemic myocardial injury with peak troponin of 3.3
CAD
h/o inf [place] in July 2021 status post PDA stent
Residual CAD on catheterization in July 2021 and not felt to be bypass candidate due to poor distal targets
Admission for GI bleed in August 2021
Diabetes
Hypertension
Hypercholesterolemia
Recurrent UTIs and Jardiance was discontinued
History of diastolic CHF
Allergies to ROSALINDA inhibitor and multiple other medications
Echocardiogram 08/11/2021: Ejection fraction 45%, mid and distal inferior, mid and distal lateral, and mid inferolateral akinesis.
Cardiac catheterization August 09, 2021: Successful stenting of occluded mid PDA, multivessel coronary artery disease with 60% distal left main, calcified 40 to 50% proximal LAD and 80 to 90% mid LAD beyond the second diagonal branch, 80% mid
circumflex beyond OM1 and 90% proximal stenosis of OM 2, apical hypokinesis
Plan:
She is admitted 05/01/2023 with with weakness, urinary frequency, chills, intermittent nausea, body aches x 2-3 days
-E. coli sepsis with + BC and UTI. ID following.
-Continue with Zosyn.
-Repeat BC pending
Abnormal troponin, peaked 3.3
-Suspect non-ischemic myocardial injury due to bacteremia/sepsis
-No chest pain and ECG is unremarkable
-Echocardiogram pending
No signs or symptoms of CHF at present but is getting IV fluids and need to follow closely. proBNP is only 800 and chest x-ray is unremarkable. Continue PO Lasix 20 mg daily and Coreg
Hypokalemia, K+ 3.4. Will replete
at bedside and reviewed plan
Progress Note - Construction Controller
Subjective
Date of Service: May 03, 2023
Patient seen and examined. Still feels fatigued. Denies CP, SOB, palpitations
Objective
Labs:
05/03/23 08:31
03/11/24 08:31
Labs
Hgb 11.8 g/dL (12.0-16.0) L 05/03/23 08:31
Hct 35.0 % (37.0-47.0) L 05/03/23 08:31
Plt Count 144 10^3/uL (130-400) 05/03/23 08:31
Sodium 135 mmol/L (135-145) 05/03/23 08:31
Potassium 3.4 mmol/L (3.5-5.1) L 05/03/23 08:31
BUN 15 mg/dl (7-17) 05/03/23 08:31
Creatinine 1.0 mg/dL (0.6-1.0) 05/03/23 08:31
Glucose 113 mg/dl (70-99) H 05/03/23 08:31
Troponins
05/01/23 05/02/23 05/02/23
08:47 05:55 11:48
Troponin I 0.572 H* 3.310 H* 2.740 H*
Vital Signs and I&O:
Vital Signs
Temp Pulse Resp BP Pulse Ox
99.0 F 73 16 124/63 97
05/03/23 07:25 05/03/23 07:25 05/03/23 07:25 05/03/23 07:25 05/03/23 07:25
Vital Signs
Temp Pulse Resp BP Pulse Ox
99.0 F 73 16 124/63 97
05/03/23 07:25 05/03/23 07:25 05/03/23 07:25 05/03/23 07:25 05/03/23 07:25
Intake & Output
05/01/23 05/02/23 05/03/23 05/04/23
05:59 06:59 06:59 06:59
Intake Total 1580 / 1580
Balance 1580 / 1580
Physical Exam
Physical Exam
GEN: No distress, awake, Ox3, sitting up in bed
HEENT: supple, anicteric, mmm
LUNGS: CTA, no wheezes/rales
CV: Reg, S1/S2, no murmur, rubs or gallops
ABD: soft, BS+, NT/ND
EXT: No edema, clubbing or cyanosis
NEURO: Gross non-focal
SKIN: No rash, warm, dry, pink
[2023-05-03 12:06] LABS: Glucose - Point of Care 163 mg/dl (70-99)
--- NOTE | 2023-05-03 12:53 | CM ---
Patient seen bedside, reports no new concerns. CM will continue to follow for discharge planning needs, watch PT/OT evaluations.
Plan; home no needs vs VN, watch PT/OT evals.
[2023-05-03] MEDS: KCL 40 MEQ PO (12:59)
[2023-05-03] MEDS: B COMPLEX w/VITAMIN C 1 CAPLET PO (12:59)
[2023-05-03] MEDS: OSCAL CAL 500 1000 MG PO (12:59)
[2023-05-03] MEDS: FEOSOL 325 MG PO (12:59)
[2023-05-03] MEDS: NOVOLOG FLEXPEN-LOW RESISTANCE 1 UNITS SC (13:00)
[2023-05-03 15:25] VITALS: BP 145/71
--- NOTE | 2023-05-03 15:42 | W.PN.ID1 ---
Date of Service
Date of Service: May 03, 2023
Today's Communication
Continue abx.
Follow repeat blood cultures to assess clearance.
Assessment / Plan
Complicated urinary tract infection
Bacteremia with E. coli; likely secondary to above
Leukocytosis
Fever
Elevated troponin
GERD
HTN
Dyslipidemia
DM
CAD; Hx [place]
Hypothyroidism
Anxiety/depression
Chronic back pain
GI bleed
UTI
Cataracts
Glaucoma
Anemia
Polymyalgia rheumatica
Recommendations:
Continue with Zosyn for the present.
Given recovery of E. coli in the blood
Repeat blood cultures have been ordered; will follow.
Await further culture data to guide antimicrobial selection and de-escalation.
Follow white count and temperature curve.
����������������������������������������������������������
Chief Complaint
-: Bacteremia
Subjective / Review of Systems
Review of Systems: No Fever, No Chills and No Dysuria
Vital Signs / Physical Exam
Vital Signs
Vital Signs
Temp Pulse Resp BP Pulse Ox
98.1 F 64 16 150/71 98
05/03/23 11:15 05/03/23 11:15 05/03/23 11:15 05/03/23 11:15 05/03/23 11:15
Physical Exam
Constitutional: No Acute Distress, Comfortable and Non-toxic
Eyes: Sclera Anicteric
Cardiovascular: S1/S2; Negative S3/S4
Pulmonary: Non Labored
Gastrointestinal: Soft, Non Tender and Non Distended
Genito-Urinary: Negative CVA Tenderness
Neurological: Awake and Alert
Psychological: Calm
Objective Data
Lab Data
Lab Results
05/03/23 08:31
05/03/23 08:31
Estimated Creat Clear 41 ml/min 05/03/23 08:31
Lactic Acid 1.4 mmol/L (0.7-2.0) 05/01/23 12:54
Total Bilirubin 1.3 mg/dl (0.2-1.3) 05/01/23 08:47
AST 28 U/L (14-36) 05/01/23 08:47
ALT 19 U/L (0-35) 05/01/23 08:47
Alkaline Phosphatase 91 U/L (38-126) 05/01/23 08:47
Most recent labs reviewed.
Micro Results:
05/02/23 08:27 Blood Culture - Preliminary
Blood/Venous Positive culture in progress
Gram Stain - Preliminary
05/01/23 10:27 Urine Culture - Final
Urine Escherichia coli
05/01/23 09:07 Blood Culture - Preliminary
Blood/Venous Positive culture in progress
Gram Stain - Final
05/01/23 09:07 Blood Culture - Preliminary
Blood/Venous Escherichia coli
Gram Stain - Preliminary
05/02/23 08:31 Blood Culture - Preliminary
Blood/Venous No Growth in 24 hours- Final report to follow
05/03/23 00:40 C. difficile GDH Antigen & Toxins - Final
Feces/Stool Negative for toxigenic C.difficile
05/01/23 09:38 Influenza Types A & B (EMELYN) - Final
Nasal Swab Negative for Influenza A & B, NAAT
Negative results must be combined with clinical observations
and patient history.
Nucleic Acid Amplification test (NAAT)performed on the
[employer] platform.
Imaging:
05/02/2023 CT abdomen/pelvis with IV contrast: Small amount of ascites is noted in the left paracolic gutter. Patient is status postcholecystectomy. Kidneys are noted to be normal without hydronephrosis. Please see full dictation for additional
detail.
[2023-05-03 17:08] LABS: Glucose - Point of Care 237 mg/dl (70-99)
[2023-05-03] MEDS: CRESTOR 20 MG PO (17:21)
[2023-05-03] MEDS: AMARYL 2 MG PO (17:21)
[2023-05-03] MEDS: LOVENOX 40 MG SC (17:22)
[2023-05-03] MEDS: NOVOLOG FLEXPEN-LOW RESISTANCE 2 UNITS SC (17:24)
--- NOTE | 2023-05-03 19:03 | PTCARENOTE ---
Pt received @ 16:00. In bed eating dinner with at bedside. Novolog and Zosyn administered per order. Pt without complaint.
[2023-05-03 19:20] VITALS: BP 140/76
[2023-05-03] MEDS: MELATONIN 5 MG PO (21:29)
[2023-05-03] MEDS: LUMIGAN 0.01% 1 DROP BOTH EYES (21:29)
[2023-05-03 22:15] LABS: Glucose - Point of Care 187 mg/dl (70-99)
[2023-05-03 22:55] VITALS: BP 118/61
[2023-05-04] VITALS (7 sets, daily range): BP systolic 133–165; BP diastolic 60–74; O2SAT 97; BMI 35.6
[2023-05-04] MEDS: SYNTHROID 125 MCG PO (06:07)
[2023-05-04] MEDS: ZOSYN 50 IV ×2 (06:07→12:03)
[2023-05-04 07:00] LABS: Glucose - Point of Care 124 mg/dl (70-99)
[2023-05-04 07:43] LABS: Hematocrit 34.1 % (37.0-47.0); Hemoglobin 11.5 g/dL (12.0-16.0); Mean Corp Hgb Conc. 33.7 g/dL (33.0-37.0); Mean Corpuscular Hgb 29.4 pg (27.0-31.0); Mean Corpuscular Volume 87.2 fL (81.0-99.0); Mean Platelet Volume 10.1 fL (7.4-10.4); Platelet Count 148 10^3/uL (130-400); Red Blood Cell Count 3.91 10^6/uL (4.20-5.40); Red Cell Dist. Width 13.4 % (11.5-14.5); White Blood Cell Count 6.3 10^3/uL (4.8-10.8)
[2023-05-04] MEDS: NOVOLOG FLEXPEN-LOW RESISTANCE SC (08:00)
--- NOTE | 2023-05-04 08:01 | W.PN.HOSP.TC ---
Today's Communication/Plan
-
Continue IV antibiotics. Follow-up cultures. PT OT
Assessment / Plan
Assessment / Plan
Physical Exam
General: No pallor, cyanosis, or jaundice. Obese. no acute distress but appears unwell/uncomfortable denies chest pain
HEENT: Throat clear. PERRLA Normocephalic atraumatic
NECK: Supple. No JVD Carotid Bruits
RESPIRATORY: Lungs clear to auscultation. No crackles wheezes stridor, on Nasal cannula 2L
CVS: S1, S2 normal. RRR.� No murmur, rub or gallop.
ABDOMEN: Soft, non-tender. No distension. BS+/normal.
EXTREMITIES: No peripheral cyanosis or edema.
MOUNTER SOUS[employer]ONES: AOx3, no neuro-deficits
A/P:
#Sepsis UTI/ E Coli bacteremia from source, complicated UTI
#non-ischemic troponin elevation due to sepsis
#Hx CAD [place] 2021 two stents placed
Cont Telemetry
trend Troponin to peak, significant elevation in AM noted 3.310 from 0.572, remains chest pain free, VSS, repeat EKG noted new T wave inversions anterior lead compared with EKG on admission, otherwise no acute ST elevations or depressions noted.
Trop down to 2.7 from 3.3--> echocardiogram unremarkable.
Cardio eval appreciated
Cont abx zosyn
Stopped Vanco
follow cultures prelim positive blood, pending identification, blood cultures repeated--> E. coli in blood and urine. Repeated blood cultures on 05/01 still positive, repeat cultures today.
ID eval appreciated
Tylenol prn
CT of the abdomen unremarkable for acute findings
Updated daughter at bedside yesterday
PT OT eval appreciated, recommended home health
#Diarrhea
C. difficile negative
Started Imodium as needed
Encourage oral intake and monitor electrolytes and renal function
#Hypokalemia
Replete and trend
# Anemia
Hb 11.8 today
#Lactic acidosis possibly d/t dehydration vs sepsis
resolved with IVF--> stop IV fluids today. Encourage oral intake
#HTN
cont Coreg Lasix with Holding Parameters
#CAD
#HLD
cont statin asa
#GERD
cont protonix
#NIDDM
follow up A1c-->7.6
cont glimeripide
low dose sliding scale
On Ozempic Tues
#Hypothyroid
cont home synthroid
follow up TSH reflex T4--> TSH 0.68
dvt ppx Lovenox
GI ppx Protonix
Full Code
Anticipated Discharge: 24 - 48 hours
Subjective/Interval History
-
Date of Service: May 04, 2023
pte feels better today, no cp or sob, no n/v. still some diarrhea but less
Objective Data
-
Labs:
Laboratory Results
05/04/23
06:57
WBC 6.3
Hgb 11.5 L
Hct 34.1 L
Plt Count 148
Sodium Pending
Potassium Pending
Chloride Pending
Carbon Dioxide Pending
BUN Pending
Creatinine Pending
Glucose Pending
Calcium Pending
Vital Signs:
Vital Signs
Temp Pulse Resp BP Pulse Ox
97.8 F 62 16 153/60 93
05/04/23 07:00 05/04/23 07:00 05/04/23 07:00 05/04/23 07:00 05/04/23 07:00
I&O
05/03/23 05/04/23 05/05/23
06:59 06:59 06:59
Intake Total 1580 / 1580 1809
Balance 1580 / 1580 1810 / 1810
Review of Systems
-
All other systems: Reviewed and negative
[2023-05-04 08:03] LABS: Blood Urea Nitrogen 13 mg/dl (7-17); Calcium 8.6 mg/dl (8.4-10.2); Carbon Dioxide 26 mmol/L (22-30); Chloride 104 mmol/L (98-107); Estimated Creatinine Clearance 46 ml/min; Glucose 139 mg/dl (70-99); Magnesium 1.8 mg/dl (1.6-2.3); Phosphorus 2.5 mg/dl (2.5-4.5); Potassium 3.7 mmol/L (3.5-5.1); Sodium 137 mmol/L (135-145); eGFR > 60.00
[2023-05-04] MEDS: LASIX 20 MG PO (08:53)
[2023-05-04] MEDS: CYMBALTA DELAYED RELEASE 60 MG PO (08:53)
[2023-05-04] MEDS: PROTONIX 40 MG PO (08:53)
[2023-05-04] MEDS: AMARYL 4 MG PO (08:53)
[2023-05-04] MEDS: COREG 6.25 MG PO ×2 (08:53→21:05)
[2023-05-04] MEDS: VITAMIN B-12 1000 MCG PO (08:53)
[2023-05-04] MEDS: LOW STRENGTH ASPIRIN 81 MG PO (08:53)
[2023-05-04] MEDS: VITAMIN D3 (cholecalciferol) 50 MCG PO (08:53)
[2023-05-04] MEDS: VISBIOME 1 CAP PO (08:54)
[2023-05-04] MEDS: IMODIUM 2 MG PO ×2 (10:45→21:05)
[2023-05-04 11:18] LABS: Glucose - Point of Care 224 mg/dl (70-99)
[2023-05-04] MEDS: OSCAL CAL 500 1000 MG PO (12:03)
[2023-05-04] MEDS: NOVOLOG FLEXPEN-LOW RESISTANCE 2 UNITS SC (12:03)
[2023-05-04] MEDS: FEOSOL 325 MG PO (12:03)
[2023-05-04] MEDS: B COMPLEX w/VITAMIN C 1 CAPLET PO (12:03)
--- NOTE | 2023-05-04 15:35 | W.PN.CARDCBS ---
Addendum entered and electronically signed by Isai Noonan MD 05/04/23 16:12:
I saw and examined the patient.
The VICE PRESIDENT OF SALES or PA's note was reviewed and I agree with the note.
Comment: General: Well developed, well nourished in NAD.
Neck: Supple, no JVD, HJR, carotids +2 B/L, no bruits bilaterally.
Heart: Non displaced PMI, RRR, no murmurs, No S3, S4, no rubs.
Lungs: Scattered rhonchi.
Extremities: No clubbing, cyanosis or edema bilaterally.
Neuro: Grossly nonfocal, awake, alert and oriented x3.
Stable cardiology status. Will consider outpatient ischemic evaluation. Discussed with family at bedside
Will sign off, call with questions
Will make follow-up visit
Original Note:
Today's Communication / Plan
-
plan for OP ischemic evaluation when improved from sepsis standpoint
continue asa, crestor, coreg, lasix 20mg daily
Impression / Plan
-
Family Physician:� Wes Garaz
Chip Tuner: Dr. Noonan
Impression:
Presented 05/01/2023 with weakness, urinary frequency, chills, intermittent nausea, body aches x 2-3 days
Acute UTI and sepsis
E. coli bacteremia on BC
Nonischemic myocardial injury with peak troponin of 3.3
CAD
h/o inf IN in July 2021 status post PDA stent
Residual CAD on catheterization in July 2021 and not felt to be bypass candidate due to poor distal targets
Admission for GI bleed in August 2021
Diabetes
Hypertension
Hypercholesterolemia
Recurrent UTIs and Jardiance was discontinued
History of diastolic CHF
Allergies to ROSALINDA inhibitor and multiple other medications
Echocardiogram 08/11/2021: Ejection fraction 45%, mid and distal inferior, mid and distal lateral, and mid inferolateral akinesis.
Cardiac catheterization August 09, 2021: Successful stenting of occluded mid PDA, multivessel coronary artery disease with 60% distal left main, calcified 40 to 50% proximal LAD and 80 to 90% mid LAD beyond the second diagonal branch, 80% mid
circumflex beyond OM1 and 90% proximal stenosis of OM 2, apical hypokinesis
ECHO
Plan:
-being treated for e.coli urosepsis. repeat blood cultures pending. remains on abx
-cardiology consulted due to elevated trop, peaked at 3.3. ECG with anterior T wave inversions on 05/01. no CP reported by patient. echo without RWMA and preserved EF. plan to allow patient to recover from sepsis and complete ischemic eval as OP.
last cath from 2021 as above.
-continue asa, crestor, coreg, lasix 20mg daily
-OP cardiac follow up arranged
Progress Note - Chip Tuner
Subjective
Date of Service: May 04, 2023
without complaints overnight noted
Objective
Labs:
05/04/23 06:57
05/04/23 06:57
Labs
Hgb 11.5 g/dL (12.0-16.0) L 05/04/23 06:57
Hct 34.1 % (37.0-47.0) L 05/04/23 06:57
Plt Count 148 10^3/uL (130-400) 05/04/23 06:57
Sodium 137 mmol/L (135-145) 05/04/23 06:57
Potassium 3.7 mmol/L (3.5-5.1) 05/04/23 06:57
BUN 13 mg/dl (7-17) 05/04/23 06:57
Creatinine 0.9 mg/dL (0.6-1.0) 05/04/23 06:57
Glucose 139 mg/dl (70-99) H 05/04/23 06:57
Troponins
05/02/23 05/02/23
05:55 11:48
Troponin I 3.310 H* 2.740 H*
Vital Signs and I&O:
Vital Signs
Temp Pulse Resp BP Pulse Ox
98.2 F 67 18 144/67 97
05/04/23 11:00 05/04/23 11:00 05/04/23 11:00 05/04/23 11:00 05/04/23 11:00
Vital Signs
Temp Pulse Resp BP Pulse Ox
98.2 F 67 18 144 97
05/04/23 11:00 05/04/23 11:00 05/04/23 11:00 05/04/23 11:00 05/04/23 11:00
Intake & Output
05/02/23 05/03/23 05/04/23 05/05/23
07:59 07:59 07:59 07:59
Intake Total 1580 / 1580 1810 / 1810
Balance 1580 / 1580 1810 / 1810
--- NOTE | 2023-05-04 16:02 | CM ---
Patient seen, reports no new concerns at this time. CM will follow along for discharge planning needs, will watch for PT/OT evaluations.
Plan; home no needs vs VN, watch PT/OT evals.
[2023-05-04 16:12] LABS: HDL Cholesterol 29 mg/dl; LDL Cholesterol, Calculated 38 mg/dl; Total Cholesterol 93 mg/dl (50-199); Triglyceride 133 mg/dl (10-149); Very Low Density Lipoprotein 26 mg/dl (0-30)
--- NOTE | 2023-05-04 16:36 | W.PN.ID1 ---
Date of Service
Date of Service: May 04, 2023
Today's Communication
Continue antibiotics.
Assessment / Plan
Complicated urinary tract infection
Bacteremia with E. coli; likely secondary to above
Leukocytosis
Fever
Elevated troponin
GERD
HTN
Dyslipidemia
DM
CAD; Hx [place]
Hypothyroidism
Anxiety/depression
Chronic back pain
GI bleed
UTI
Cataracts
Glaucoma
Anemia
Polymyalgia rheumatica
Recommendations:
Continue antibiotics. Narrow to cefazolin.
Following repeat blood cultures. Currently negative at 72 hours.
Follow white count and temperature curve.
May be able to transition to an oral antibiotic regimen of kefelx 500 mg QID in the next 24 hours if remains clinically stable.
����������������������������������������������������������
Chief Complaint
-: UTI and Bacteremia
Subjective / Review of Systems
Review of Systems: No Fever and No Chills
Vital Signs / Physical Exam
Vital Signs
Vital Signs
Temp Pulse Resp BP Pulse Ox
97.8 F 68 16 165/74 97
05/04/23 15:00 05/04/23 15:00 05/04/23 15:00 05/04/23 15:00 05/04/23 15:00
Physical Exam
Physical Exam:
Constitutional: No Acute Distress, Comfortable and Non-toxic
Eyes: Sclera Anicteric. EOMI.
Cardiovascular: S1/S2; Negative S3/S4
Pulmonary: Non Labored. No wheeze
Gastrointestinal: Soft, Non Tender and Non Distended
Genito-Urinary: Negative CVA Tenderness
Neurological: Awake and Alert
Psychological: Calm
Objective Data
Lab Data
Lab Results
05/04/23 06:57
05/04/23 06:57
Estimated Creat Clear 46 ml/min 05/04/23 06:57
Lactic Acid 1.4 mmol/L (0.7-2.0) 05/01/23 12:54
Total Bilirubin 1.3 mg/dl (0.2-1.3) 05/01/23 08:47
AST 28 U/L (14-36) 05/01/23 08:47
ALT 19 U/L (0-35) 05/01/23 08:47
Alkaline Phosphatase 91 U/L (38-126) 05/01/23 08:47
Most recent labs reviewed.
Micro Results:
05/03/23 15:59 Blood Culture - Preliminary
Blood/Venous No Growth in 24 hours- Final report to follow
05/02/23 08:27 Blood Culture - Preliminary
Blood/Venous Escherichia coli
Gram Stain - Preliminary
05/01/23 09:07 Blood Culture - Final
Blood/Venous Escherichia coli
Gram Stain - Final
05/01/23 09:07 Blood Culture - Final
Blood/Venous Escherichia coli
Gram Stain - Final
05/02/23 08:31 Blood Culture - Preliminary
Blood/Venous No Growth in 48 hours- Final report to follow
05/04/23 06:57 Blood Culture - Pending
Blood/Venous
05/01/23 10:27 Urine Culture - Final
Urine Escherichia coli
05/03/23 00:40 C. difficile GDH Antigen & Toxins - Final
Feces/Stool Negative for toxigenic C.difficile
05/01/23 09:38 Influenza Types A & B (EMELYN) - Final
Nasal Swab Negative for Influenza A & B, NAAT
Negative results must be combined with clinical observations
and patient history.
Nucleic Acid Amplification test (NAAT)performed on the
[employer] platform.
Imaging:
05/02/2023 CT abdomen/pelvis with IV contrast: Small amount of ascites is noted in the left paracolic gutter. Patient is status postcholecystectomy. Kidneys are noted to be normal without hydronephrosis. Please see full dictation for additional
detail.
[2023-05-04 16:54] LABS: Glucose - Point of Care 283 mg/dl (70-99)
[2023-05-04] MEDS: ANCEF 10 IV (17:09)
[2023-05-04] MEDS: AMARYL 2 MG PO (17:10)
[2023-05-04] MEDS: NOVOLOG FLEXPEN-LOW RESISTANCE 3 UNITS SC (17:10)
[2023-05-04] MEDS: LOVENOX 40 MG SC (17:11)
[2023-05-04] MEDS: CRESTOR 20 MG PO (17:11)
[2023-05-04] MEDS: LUMIGAN 0.01% 1 DROP BOTH EYES (21:05)
[2023-05-04] MEDS: MELATONIN 5 MG PO (21:05)
[2023-05-04 21:11] LABS: Glucose - Point of Care 168 mg/dl (70-99)
[2023-05-05] MEDS: ANCEF 10 IV ×2 (02:53→09:35)
[2023-05-05 03:01] VITALS: BP 111/40
[2023-05-05] MEDS: ROBITUSSIN 100 MG PO (05:09)
[2023-05-05] MEDS: SYNTHROID 125 MCG PO (05:10)
[2023-05-05 06:00] VITALS: BMI 35.4
[2023-05-05 07:00] VITALS: BP 152/57
[2023-05-05 08:12] LABS: Glucose - Point of Care 104 mg/dl (70-99)
[2023-05-05] MEDS: AMARYL 4 MG PO (08:35)
[2023-05-05] MEDS: NOVOLOG FLEXPEN-LOW RESISTANCE SC ×2 (08:35→17:16)
[2023-05-05] MEDS: VITAMIN D3 (cholecalciferol) 50 MCG PO (08:36)
[2023-05-05] MEDS: VISBIOME 1 CAP PO (08:36)
[2023-05-05] MEDS: CYMBALTA DELAYED RELEASE 60 MG PO (08:36)
[2023-05-05] MEDS: LASIX 20 MG PO (08:36)
[2023-05-05] MEDS: PROTONIX 40 MG PO (08:36)
[2023-05-05] MEDS: LOW STRENGTH ASPIRIN 81 MG PO (08:36)
[2023-05-05] MEDS: COREG 6.25 MG PO (08:36)
[2023-05-05] MEDS: VITAMIN B-12 1000 MCG PO (08:36)
--- NOTE | 2023-05-05 09:01 | W.PN.HOSP.TC ---
Addendum entered and electronically signed by Max Washington MD 05/05/23 14:32:
Correction Zosyn changed to IV Cefazolin by ID. Await for ID clearance prior to d/c.
Original Note:
Today's Communication/Plan
-
Continue current management. Discharge planning in progress
Assessment / Plan
Assessment / Plan
Physical Exam
General: No pallor, cyanosis, or jaundice. Obese. no acute distress but appears unwell/uncomfortable denies chest pain
HEENT: Throat clear. PERRLA Normocephalic atraumatic
NECK: Supple. No JVD Carotid Bruits
RESPIRATORY: Lungs clear to auscultation. No crackles wheezes stridor, on Nasal cannula 2L
CVS: S1, S2 normal. RRR.� No murmur, rub or gallop.
ABDOMEN: Soft, non-tender. No distension. BS+/normal.
EXTREMITIES: No peripheral cyanosis or edema.
ENGINE[employer] G[employer]ING STATION: AOx3, no neuro-deficits
A/P:
#Sepsis UTI/ E Coli bacteremia from source, complicated UTI
#non-ischemic troponin elevation due to sepsis
#Hx CAD [place] 2021 two stents placed
Cont Telemetry
trend Troponin to peak, significant elevation in AM noted 3.310 from 0.572, remains chest pain free, VSS, repeat EKG noted new T wave inversions anterior lead compared with EKG on admission, otherwise no acute ST elevations or depressions noted.
Trop down to 2.7 from 3.3--> echocardiogram unremarkable.
Cardio eval appreciated
Cont abx zosyn--> probably changed to oral later today or in a.m.
Stopped Vanco
follow cultures prelim positive blood, pending identification, blood cultures repeated--> E. coli in blood and urine. Repeated blood cultures on 05/02 no growth.
ID eval appreciated
Tylenol prn
CT of the abdomen unremarkable for acute findings
Updated daughter at bedside yesterday
PT OT eval appreciated, recommended home health
#Diarrhea
C. difficile negative
Started Imodium as needed
Encourage oral intake and monitor electrolytes and renal function
#Hypokalemia
Replete and trend
# Anemia
Hb 11.8 yesterday
#Lactic acidosis possibly d/t dehydration vs sepsis
resolved with IVF--> off IV fluids today. Encourage oral intake
#HTN
cont Coreg Lasix with Holding Parameters
#CAD
#HLD
cont statin asa
#GERD
cont protonix
#NIDDM
follow up A1c-->7.6
cont glimeripide
low dose sliding scale
On Ozempic Tues
#Hypothyroid
cont home synthroid
follow up TSH reflex T4--> TSH 0.68
dvt ppx Lovenox
GI ppx Protonix
Full Code
Anticipated Discharge: Today
Subjective/Interval History
-
Date of Service: May 05, 2023
Patient feels well today. Afebrile
Objective Data
-
Labs:
Laboratory Results
05/05/23
08:23
WBC Pending
Hgb Pending
Hct Pending
Plt Count Pending
Sodium Pending
Potassium Pending
Chloride Pending
Carbon Dioxide Pending
BUN Pending
Creatinine Pending
Glucose Pending
Calcium Pending
Vital Signs:
Vital Signs
Temp Pulse Resp BP Pulse Ox
98.3 F 58 18 152/57 94
05/05/23 07:00 05/05/23 08:36 05/05/23 07:00 05/05/23 07:00 05/05/23 07:00
I&O
05/04/23 05/05/23 05/06/23
06:59 06:59 06:59
Intake Total 1809 240 / 240
Output Total 1000 / 1000
Balance 1809 -760 / -760
[2023-05-05 09:07] LABS: % Basophils 0.4 % (0-2); % Eosinophils 1.2 % (0-6); % Immature Granulocytes 0.5 % (0-0.5); % Lymphocytes 26.3 % (20.5-51.1); % Monocytes 14.6 % (1.7-9.3); Absolute Eosinophils 0.1 10^3/uL (0-0.7); Absolute Lymphocytes 2.2 10^3/uL (1.2-3.4); Absolute Monocytes 1.2 10^3/uL (0.1-0.6); Absolute Neutrophils 4.8 10^3/uL (1.4-6.5); Hematocrit 37.1 % (37.0-47.0); Hemoglobin 12.3 g/dL (12.0-16.0); Mean Corp Hgb Conc. 33.2 g/dL (33.0-37.0); Mean Corpuscular Hgb 29.4 pg (27.0-31.0); Mean Corpuscular Volume 88.8 fL (81.0-99.0); Mean Platelet Volume 10.3 fL (7.4-10.4); Nucleated Red Blood Cells % 0 %; Platelet Count 191 10^3/uL (130-400); Red Blood Cell Count 4.18 10^6/uL (4.20-5.40); Red Cell Dist. Width 13.3 % (11.5-14.5); White Blood Cell Count 8.4 10^3/uL (4.8-10.8)
[2023-05-05 09:31] LABS: Blood Urea Nitrogen 11 mg/dl (7-17); Carbon Dioxide 27 mmol/L (22-30); Chloride 106 mmol/L (98-107); Estimated Creatinine Clearance 52 ml/min; Glucose 127 mg/dl (70-99); Magnesium 1.7 mg/dl (1.6-2.3); Potassium 3.9 mmol/L (3.5-5.1); Sodium 138 mmol/L (135-145); eGFR > 60.00
[2023-05-05 12:00] VITALS: BP 148/78
[2023-05-05 12:26] LABS: Glucose - Point of Care 245 mg/dl (70-99)
[2023-05-05] MEDS: NOVOLOG FLEXPEN-LOW RESISTANCE 2 UNITS SC (12:28)
[2023-05-05] MEDS: OSCAL CAL 500 1000 MG PO (12:28)
[2023-05-05] MEDS: B COMPLEX w/VITAMIN C 1 CAPLET PO (12:28)
[2023-05-05] MEDS: FEOSOL 325 MG PO (12:28)
--- NOTE | 2023-05-05 14:27 | CM ---
Patient seen with , discussed PT recommending home health. Patient agreeable to [facility], TT sent to Carmen to update. IMM reviewed, signed, placed in patients chart. CM will continue to follow for discharge planning needs.
Plan; home with [facility] pending acceptance.
--- NOTE | 2023-05-05 15:46 | VNURNOTE ---
Home Health Liaison met with patient and spouse Mauricio at 1500 to discuss [facility] nurse/therapy, visits, schedule and homebound status. Patient is agreeable and understands that visits at home will be 2-3 x per week to assess and teach medical
management.
[facility] brochure provided with contact information. Patient is aware that [facility] will contact them for start of care in 1-2 days after discharge from .
[facility] referral completed in [facility].
--- NOTE | 2023-05-05 15:48 | W.PN.ID1 ---
Date of Service
Date of Service: May 05, 2023
Today's Communication
Transition to oral Keflex.
Assessment / Plan
Complicated urinary tract infection
Bacteremia with E. coli; likely secondary to above
Leukocytosis
Fever
Elevated troponin
GERD
HTN
Dyslipidemia
DM
CAD; Hx [place]
Hypothyroidism
Anxiety/depression
Chronic back pain
GI bleed
UTI
Cataracts
Glaucoma
Anemia
Polymyalgia rheumatica
Recommendations:
Blood cultures remain negative from 05/02 forward.
Continue antibiotics. Transition to Keflex 500 mg 4 times daily, to continue through 05/14/2023.
No objection to discharge from Infectious Diseases standpoint.
����������������������������������������������������������
Chief Complaint
-: UTI and Bacteremia
Subjective / Review of Systems
Review of Systems: No Fever, No Chills and No Dysuria
Vital Signs / Physical Exam
Vital Signs
Vital Signs
Temp Pulse Resp BP Pulse Ox
97.7 F 64 18 148/78 98
05/05/23 12:00 05/05/23 12:00 05/05/23 12:00 05/05/23 12:00 05/05/23 12:00
Physical Exam
Constitutional: No Acute Distress and Non-toxic
Eyes: Sclera Anicteric
Cardiovascular: S1/S2; Negative S3/S4
Pulmonary: Non Labored; Negative Wheezes or Rales
Gastrointestinal: Soft and Non Tender
Genito-Urinary: Negative CVA Tenderness
Extremities: Edema; Negative Cyanosis or Erythema
Neurological: Awake and Alert
Psychological: Calm
Objective Data
Lab Data
Lab Results
05/05/23 08:23
05/05/23 08:23
Estimated Creat Clear 52 ml/min 05/05/23 08:23
Lactic Acid 1.4 mmol/L (0.7-2.0) 05/01/23 12:54
Total Bilirubin 1.3 mg/dl (0.2-1.3) 05/01/23 08:47
AST 28 U/L (14-36) 05/01/23 08:47
ALT 19 U/L (0-35) 05/01/23 08:47
Alkaline Phosphatase 91 U/L (38-126) 05/01/23 08:47
Most recent labs reviewed.
Micro Results:
05/02/23 08:31 Blood Culture - Preliminary
Blood/Venous No Growth in 72 hours- Final report to follow
05/04/23 06:57 Blood Culture - Preliminary
Blood/Venous No Growth in 24 hours- Final report to follow
05/03/23 15:59 Blood Culture - Preliminary
Blood/Venous No Growth in 24 hours- Final report to follow
05/02/23 08:27 Blood Culture - Preliminary
Blood/Venous Escherichia coli
Gram Stain - Preliminary
05/01/23 09:07 Blood Culture - Final
Blood/Venous Escherichia coli
Gram Stain - Final
05/01/23 09:07 Blood Culture - Final
Blood/Venous Escherichia coli
Gram Stain - Final
05/01/23 10:27 Urine Culture - Final
Urine Escherichia coli
05/03/23 00:40 C. difficile GDH Antigen & Toxins - Final
Feces/Stool Negative for toxigenic C.difficile
05/01/23 09:38 Influenza Types A & B (EMELYN) - Final
Nasal Swab Negative for Influenza A & B, NAAT
Negative results must be combined with clinical observations
and patient history.
Nucleic Acid Amplification test (NAAT)performed on the
[employer] platform.
Imaging:
05/02/2023 CT abdomen/pelvis with IV contrast: Small amount of ascites is noted in the left paracolic gutter. Patient is status postcholecystectomy. Kidneys are noted to be normal without hydronephrosis. Please see full dictation for additional
detail.
Care Review
Plan reviewed with: Physician (Hospitalist)
[2023-05-05 16:00] VITALS: BP 165/74
[2023-05-05 17:08] LABS: Glucose - Point of Care 125 mg/dl (70-99)
[2023-05-05] MEDS: AMARYL 2 MG PO (17:16)
[2023-05-05] MEDS: CRESTOR 20 MG PO (17:20)
[2023-05-05] MEDS: KEFLEX 500 MG PO (17:20)
[2023-05-05] MEDS: LOVENOX 40 MG SC (17:20)
--- NOTE | 2023-05-05 17:21 | W.DCSUMMARY ---
Discharge Summary
Discharge Data
Date of Admission: 05/01/23
Date of Discharge: 05/05/23
-
Pending Results: No
Hospital Course
Patient 82 years old female history hypertension hyperlipidemia CAD recurrent UTIs presented to the hospital with generalized weakness nausea and urinary symptoms. Patient was found to have sepsis due to urinary tract infection. She was treated
with IV antibiotics. ID consulted. She had E. coli in the blood in her urine. Initially she was on IV Zosyn and vancomycin but was streamed to IV Zosyn only and subsequently IV cefazolin. Repeated blood cultures cleared bacteremia. Patient has
remained afebrile and hemodynamically stable. ID recommended to switch to oral antibiotics and cleared for discharge.
Patient also had elevated troponin and no chest pain that was felt to be related to sepsis. Cardiology consulted. She had an echocardiogram with EF of 60 to 65% and wall motion abnormalities were no longer seen. Cardiology will follow-up with her
as outpatient and they signed off and cleared her for discharge.
PT OT evaluated the patient and felt she can go home with home care. No other events were noticed. She has been discharged in stable condition today.
Discharge duration: 35 minutes
Discharge Plan
-
Patient Disposition: Home with Home Care
Discharge Diagnosis/Procedures: Sepsis due to urinary tract infection. Bacteremia due to Escherichia coli. Elevated troponin due to non-ischemic myocardial injury secondary to infection. Diarrhea. Hypertension. History of coronary artery
disease. Anemia. Diabetes mellitus type 2. Hypothyroidism.
Diet: Low Cholesterol
Activity: As tolerated
Driving Restrictions: As prior to admission
Blood Work: Please PCP to order CBC, BMP within 1 week
Specialty Instructions: Weigh Daily- Call MD for wt gain/loss 3 lbs overnight/5 lbs in 1 week
Referrals:
Isai Noonan MD [Active] - 05/19/23 11:20 am (You have a cardiology follow up appointment at the [place] office. Please call with questions. )
Wes Garza MD [Family Provider] - in less than 1 week
Prescriptions:
New
cephalexin 500 mg capsule
500 mg PO QID 10 Days Qty: 40 0RF
Continued
vitamin B complex [B-Complex] 1 TAB tablet
1 tab PO NOON
Patient Comments:
vitamin B complex w/ vitamin A, biotin, etc.
duloxetine 60 MG capsule,delayed release(DR/EC)
60 mg PO DAILY
lorazepam 0.5 MG tablet
0.5 mg PO Q6HPRN PRN (Reason: anxiety )
Patient Comments:
09/12/21: last filled 06/03/21, 180 tabs for 45 days from [id number]
melatonin 5 MG tablet
5 mg PO HS
cholecalciferol (vitamin D3) 2,000 UNITS tablet
2,000 units PO DAILY Qty: 30 0RF
ferrous sulfate [FeroSul] 325 MG tablet
325 mg PO NOON
Lumigan 1 DROP drops
1 drp BOTH EYES HS
acetaminophen-codeine 300-30 mg Tablet
1 tab PO BID PRN (Reason: MODERATE PAIN) Qty: 0
carvedilol 6.25 MG tablet
6.25 mg PO BID Qty: 60 11RF
aspirin 81 MG tablet,chewable
81 mg PO DAILY 0RF
rosuvastatin 20 MG tablet
20 mg PO QPM Qty: 30 11RF
cyanocobalamin (vitamin B-12) 1,000 mcg Tablet
1,000 mcg PO DAILY Qty: 30 0RF
pantoprazole [Protonix] 40 mg Tablet,Delayed Release (Dr/Ec)
40 mg PO DAILY
furosemide 20 mg Tablet
20 mg PO DAILY Qty: 90 0RF
levothyroxine 125 mcg Tablet
125 mcg PO DAILY
glimepiride 4 mg Tablet
2 mg PO QPM
zinc 50 mg Tablet
50 mg PO NOON
raul (Zingiber officinalis) 550 mg Capsule
550 mg PO QPM
Probiotic 100 billion cell Capsule
1 cap PO DAILY
Ozempic 0.25 mg or 0.5 mg (2 mg/3 mL) Pen Injector
0.5 mg SC TU
Rx Instructions:
Wednesday
calcium carbonate [Calcium 600] 600 mg calcium (1,500 mg) Tablet
1,200 mg PO NOON
glimepiride 4 mg Tablet
4 mg PO DAILY
Azo Bladder Control 300 mg Capsule
1 cap PO DAILY
Discharge Orders:
Discharge Patient (As Directed); Ordered 05/05/23
Ordered By: Max Washington
Discharge Date and Time
Discharge Date/Time: 05/05/23 18:42
== END 2023-05-05 18:42 | disposition home health service (06) | DRG 872 ==
LOC: 4 WEST ACU 14:38
PROVIDERS: Registered Nurse; ADMITTING PHYSICIAN Internal Medicine; ATTENDING PHYSICIAN Hospitalist; CONSULT PHYSICIAN Internal Medicine Cardiovascular Disease; CONSULT PHYSICIAN Internal Medicine Infectious Disease; EMERGENCY PHYSICIAN Emergency Medicine; FAMILY PHYSICIAN Family Medicine
DX: A41.51 Sepsis due to Escherichia coli [E. coli] (principal); N39.0 Urinary tract infection, site not specified; I5A Non-ischemic myocardial injury (non-traumatic); E87.20 Acidosis, unspecified; I10 Essential (primary) hypertension; E11.9 Type 2 diabetes mellitus without complications; E03.9 Hypothyroidism, unspecified; I25.10 Atherosclerotic heart disease of native coronary artery without angina pectoris; D64.9 Anemia, unspecified; E87.6 Hypokalemia; R19.7 Diarrhea, unspecified
CPT/HCPCS: 51701; 51798; 71045; 74177; 80048; 80053; 80061; 81003; 81015; 82550; 82962; 83036; 83605; 83735; 83880; 84100; 84443; 84484; 85025; 85027; 87040; 87077; 87086; 87149; 87186; 87205; 87324; 87449; 87502; 87811; 93005; 93306; 96361; 96365; 96367; 97162; 97165; 99285; Q9967

== ENCOUNTER → 2023-06-07 07:58 | Outpatient (REF) | payer MEDICARE, OTHER, SELFPAY | LOC: DHCBC/DCA 07:58 | PROVIDERS: ATTENDING PHYSICIAN Internal Medicine Cardiovascular Disease; FAMILY PHYSICIAN Family Medicine | DX: R79.89 Other specified abnormal findings of blood chemistry (principal); I25.5 Ischemic cardiomyopathy | CPT/HCPCS: 78452; 93017; A9500; J2785 ==

== ENCOUNTER → 2024-03-02 09:21 | Outpatient (REF) | payer MEDICARE, OTHER, SELFPAY | LOC: RAD 09:21 | PROVIDERS: ATTENDING PHYSICIAN Obstetrics & Gynecology; FAMILY PHYSICIAN Family Medicine | DX: N39.0 Urinary tract infection, site not specified (principal) | CPT/HCPCS: 76770 ==

== ENCOUNTER 2024-05-08 13:42 | Emergency (ER) | payer MEDICARE, OTHER, SELFPAY ==
[2024-05-08 13:43] VITALS: BP 161/90
[2024-05-08 14:10] LABS: % Basophils 0.4 % (0-2); % Eosinophils 0.4 % (0-6); % Immature Granulocytes 0.3 % (0-0.5); % Lymphocytes 15.5 % (20.5-51.1); % Neutrophils 76.4 % (42.2-75.2); Absolute Lymphocytes 1.6 10^3/uL (1.2-3.4); Absolute Monocytes 0.7 10^3/uL (0.1-0.6); Absolute Neutrophils 7.9 10^3/uL (1.4-6.5); Hematocrit 45.4 % (37.0-47.0); Hemoglobin 15.3 g/dL (12.0-16.0); Mean Corp Hgb Conc. 33.7 g/dL (33.0-37.0); Mean Corpuscular Hgb 30.5 pg (27.0-31.0); Mean Corpuscular Volume 90.4 fL (81.0-99.0); Mean Platelet Volume 9.7 fL (7.4-10.4); Nucleated Red Blood Cells % 0 %; Platelet Count 237 10^3/uL (130-400); Red Blood Cell Count 5.02 10^6/uL (4.20-5.40); Red Cell Dist. Width 12.8 % (11.5-14.5); White Blood Cell Count 10.3 10^3/uL (4.8-10.8)
[2024-05-08 14:26] LABS: ALT (SGPT) 20 U/L (0-35); AST (SGOT) 26 U/L (14-36); Albumin 4.2 g/dl (3.5-5.0); Alkaline Phosphatase 95 U/L (38-126); Blood Urea Nitrogen 20 mg/dl (7-17); Calcium 10.2 mg/dl (8.4-10.2); Carbon Dioxide 22 mmol/L (22-30); Chloride 103 mmol/L (98-107); Glucose 200 mg/dl (70-99); Potassium 4.2 mmol/L (3.5-5.1); Sodium 136 mmol/L (135-145); Total Bilirubin 0.7 mg/dl (0.2-1.3); Total Protein 6.9 g/dl (6.3-8.2); eGFR > 60.00
[2024-05-08 14:36] LABS: COVID-19 Antigen Negative (Negative)
--- NOTE | 2024-05-08 16:38 | ED.GENMED ---
History of Present Illness
General
Chief Complaint: Weakness
Source: patient and spouse
Time Seen by Provider: 05/08/24 16:14
History of Present Illness
History of Present Illness:
This patient is an 83-year-old female who says she was feeling perfectly well until yesterday during confucianism services when she started to feel nauseous. She then developed nonbloody vomiting and diarrhea. She has not had vomiting since then but she
notes intermittent episodes of nausea. She started to feel better by yesterday afternoon but when she awoke this morning she started to feel ill again described as 'cold sweats' associated with fatigue and nausea. She denies fever, chest pain,
dyspnea, urgency, frequency, dysuria, new cough, sore throat, rhinorrhea, photophobia, headache, neck pain. Patient notes she has chronic intermittent left lower quadrant pain that is unchanged and not present right now. Patient states that she
has a history of urosepsis and wanted to make sure this was not occurring at this time.
Past History
Past History
ED Past Medical History: GERD, HTN, Hypercholesterolemia, NIDDM, DC, Hypothyroidism, Psychiatric (Depression, Anxiety), Other (Back pain, Headaches, GI bleeding, Hiatal hernia, UTI, Cataractsm Glaucoma, Anemia, Polymyralgiarhematic) and Other
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
ED Past Surgical History: Cardiac (08/09/21 Stents X 2), Cholecystectomy, Gynecological (Hysterectomy, tubal ligation, Oophorectomy one sided), Orthopedic (Barney carpal tunnel, ), Tonsilectomy and Other (Bilateral carpal tunnel surgery)
Social History
Tobacco: Former smoker
Alcohol: Occasional
Drug: None
Personal:
Living: with family
Employment: Retired
Family History
Family History: Diabetes; Negative Early CAD
Phy Exam
Physical Exam
Physical Exam:
GENERAL: Alert , in no apparent distress
EYE: pupils equal and reactive
NECK: Supple, no significant adenopathy.
ENT: o/p clr, mm dry
CARDIAC: Regular rate and rhythm .
LUNGS: Clear breath sounds bilaterally, no acute respiratory distress, no wheezes/rales/rhonchi
ABDOMEN: Soft, without focal tenderness, no r/g, no cvat
NEUROLOGICAL: Alert and oriented, no focal neuro deficits
SKIN: Warm and dry, skin intact.
MUSCULOSKELETAL: No edema, well perfused.
PSYCH: Normal and appropriate interaction.
Course
Orders/Labs/Results
Orders:
Orders
05/08/24 13:56
COVID-19 Antigen Urgent
Source: Nasal Swab
Complete Blood Count/With Diff Urgent
Comprehensive Metabolic Panel Urgent
Influenza A+B Rapid Molecular Urgent
MAX Source: Nasal Swab
Specimen Description:
05/08/24 16:37
Add On- LAB Urgent
Tests Added?: troponin
Electrocardiogram (*1) Urgent
Reason for Study: Other
Other Reason for Exam: weakness
EKG- Treatment ONCE
05/08/24 16:38
0.9% Sodium Chloride 1000 ml [Nss] 1,000 ml IV BOLUS
05/08/24 16:53
Lactic Acid Q4H
Comment: CANCEL 2nd LACTIC ACID IF 1st LACTIC ACID IS LESS THAN 2
Troponin I Urgent
Urinalysis Reflex To Culture Urgent
Date Specimen was Collected: 05/08/24
Time Specimen was Collected: 13:47
Urine Microscopic Reflex Cult Urgent
Blood Culture Q30M
MAX Source: Blood/Venous
Specimen Description:
Blood Culture Q30M
MAX Source: Blood/Venous
Specimen Description:
Urine Culture Urgent
MAX Source: U
Specimen Description:
Date Specimen was Collected: 05/08/24
Time Specimen was Collected: 13:47
Abnormal Lab Results
05/08/24 05/08/24 05/08/24
13:56 16:53 17:04
Absolute Neuts (auto) 7.9 H 10^3/uL
(1.4-6.5)
Absolute Monos (auto) 0.7 H 10^3/uL
(0.1-0.6)
Neutrophils % 76.4 H %
(42.2-75.2)
Lymphocytes % 15.5 L %
(20.5-51.1)
BUN 20 H mg/dl
(7-17)
Glucose 200 H mg/dl
(70-99)
Leukocyte Esterase Rfl 2+ A
(Negative)
Urine Bacteria (Reflex) Few A
(Negative)
POC Glucose 139 H mg/dl
(70-99)
05/08/24 13:56
05/08/24 13:56
Vital Signs
Initial and Last Documented VS:
Initial Vital Signs
Temp Pulse Resp BP Pulse Ox
98.1 F 88 18 161/90 99
05/08/24 13:43 05/08/24 13:43 05/08/24 13:43 05/08/24 13:43 05/08/24 13:43
Last Documented Vital Signs
Temp Pulse Resp BP Pulse Ox
98.1 F 82 14 150/66 97
05/08/24 13:43 05/08/24 18:15 05/08/24 18:15 05/08/24 18:00 05/08/24 18:15
*Critical Care Note
Total Time (30-74mins, 75-104mins- exclusive of procedures): Not Applicable
Update Note
Update Note:
Patient presents to the Emergency Department with fatigue, sweats, nausea
Number and Complexity of Problems Addressed at the Encounter
� Chronic conditions affecting care:
� Acute Exacerbation and/or Progression of Chronic Illness:
� Differential Diagnosis includes: But not limited to urosepsis, UTI, influenza, COVID, nonspecific viral illness, ACS, etc. etc.
Amount and/or Complexity of Data to be Reviewed and Analyzed
� I performed an independent evaluation of and my interpretation is:
EKG:nsr, lad, no acute ischemia
CT:
Xrays:
Laboratory Studies: Generally unremarkable, mild hyperglycemia, UA not very convincing for a suspected UTI
Other:
� Review of other/old records reveals: May 04 discharge summary reviewed patient was admitted from the to the with generalized weakness nausea and urinary symptoms and found to have urosepsis
� Clinical information was obtained by an independent historian: who is bedside
� Prescriptions/Medications Considered but not given:
� Further testing considered but not performed:
Risk of Complications and/or Morbidity or Mortality of Patient Management
� Social determinants of health affecting care:
� Discussion with other providers (PCP, Hospitalists, Consultants, etc):
� Escalation of care including admission/observation vs risk of discharge considered: Vital signs stable, patient extremely well-appearing, workup generally unremarkable here, no specific etiology for her symptoms noted however
workup not suggestive for urosepsis or other emergent illness. Discussed with patient, , and daughter who is now bedside importance of follow-up and reasons return to the ER.
ED Attending Note
-
Portions of this chart may have been created with voice recognition software.� Occasional wrong word or��sound alike� substitutions may have occurred due to the inherent limitations of voice recognition software.
Discharge Plan
Departure
Patient Disposition: Home (Routine Discharge)
Date of Disposition: 05/08/24
Time of Disposition: 17:56
Patient with high blood pressure during this ER visit?: Yes
Condition: Good
Discharge Problem:
Nausea
Instructions: BLOOD PRESSURE, Acute Nausea and Vomiting
Prescriptions:
No Action
vitamin B complex [B-Complex] 1 TAB tablet
1 tab PO NOON
Patient Comments:
vitamin B complex w/ vitamin A, biotin, etc.
duloxetine 60 MG capsule,delayed release(DR/EC)
60 mg PO DAILY
lorazepam 0.5 MG tablet
0.5 mg PO Q6HPRN PRN (Reason: anxiety )
Patient Comments:
09/12/21: last filled 06/03/21, 180 tabs for 45 days from [facility]
melatonin 5 MG tablet
5 mg PO HS
cholecalciferol (vitamin D3) 2,000 UNITS tablet
2,000 units PO DAILY Qty: 30 0RF
ferrous sulfate [FeroSul] 325 MG tablet
325 mg PO NOON
Lumigan 1 DROP drops
1 drp BOTH EYES HS
acetaminophen-codeine 300-30 mg Tablet
1 tab PO BID PRN (Reason: MODERATE PAIN) Qty: 0
carvedilol 6.25 MG tablet
6.25 mg PO BID Qty: 60 11RF
aspirin 81 MG tablet,chewable
81 mg PO DAILY 0RF
rosuvastatin 20 MG tablet
20 mg PO QPM Qty: 30 11RF
cyanocobalamin (vitamin B-12) 1,000 mcg Tablet
1,000 mcg PO DAILY Qty: 30 0RF
pantoprazole [Protonix] 40 mg Tablet,Delayed Release (Dr/Ec)
40 mg PO DAILY
furosemide 20 mg Tablet
20 mg PO DAILY Qty: 90 0RF
levothyroxine 125 mcg Tablet
125 mcg PO DAILY
glimepiride 4 mg Tablet
2 mg PO QPM
zinc 50 mg Tablet
50 mg PO NOON
raul (Zingiber officinalis) 550 mg Capsule
550 mg PO QPM
Probiotic 100 billion cell Capsule
1 cap PO DAILY
Ozempic 0.25 mg or 0.5 mg (2 mg/3 mL) Pen Injector
0.5 mg SC
Rx Instructions:
Wednesday
calcium carbonate [Calcium 600] 600 mg calcium (1,500 mg) Tablet
1,200 mg PO NOON
glimepiride 4 mg Tablet
4 mg PO DAILY
Azo Bladder Control 300 mg Capsule
1 cap PO DAILY
cephalexin 500 mg capsule
500 mg PO QID 10 Days Qty: 40 0RF
Referrals:
Wes Garza MD [Family Provider] - Follow up in 2-3 days
Activity Restrictions/Additional Instructions:
PLEASE SEE YOUR DOCTOR AND CLOSE FOLLOW-UP THIS WEEK. IF YOU DEVELOP CHEST PAIN, SHORTNESS OF BREATH, FEVER, CHILLS, SWEATS, RECURRENT VOMITING, ABDOMINAL PAIN, OR OTHER WORRISOME SIGNS, PLEASE RETURN TO THE ER IMMEDIATELY!
Interventions
Interventions:
*Risk Screen - Suicide Last Done: 05/08/24 13:43
*General Assessment Last Done: 05/08/24 13:43
*Neglect/Abuse Screening Last Done: 05/08/24 13:43
*Nursing Disposition Last Done: 05/08/24 18:33
ED- Cardiac Assessment Last Done: 05/08/24 17:00
ED- Neurological Assessment Last Done: 05/08/24 17:00
ED- Pulmonary Assessment Last Done: 05/08/24 17:00
Discharge Date and Time
Discharge Date/Time: 05/08/24 18:33
Print Language: HEBREW
[2024-05-08] MEDS: NSS 1000 IV (17:00)
[2024-05-08 17:03] VITALS: BMI 34.9
[2024-05-08 17:06] LABS: Glucose - Point of Care 139 mg/dl (70-99)
[2024-05-08 17:11] LABS: Urine Albumin Negative (Neg - Trace); Urine Bilirubin Negative (Negative); Urine Character Clear (Clear); Urine Color Yellow; Urine Glucose Negative (Negative); Urine Ketone Negative (Negative); Urine Leukocyte 2+ (Negative); Urine Nitrite Negative (Negative); Urine Occult Blood Negative (Negative); Urine Specific Gravity 1.005 (<1.030); Urine Urobilinogen Negative (Neg - 1+)
[2024-05-08 17:24] LABS: Lactic Acid 1.5 mmol/L (0.7-2.0)
[2024-05-08 17:26] LABS: Urine Red Blood Cell 0-2 /HPF (0-2)
[2024-05-08 17:27] LABS: Urine Bacteria Few (Negative)
[2024-05-08 17:38] LABS: Troponin I < 0.012 ng/ml
[2024-05-08 18:00] VITALS: BP 150/66
== END 2024-05-08 18:33 | disposition home or self-care (01) ==
LOC: EMR 13:42
PROVIDERS: Emergency Medicine; EMERGENCY PHYSICIAN Emergency Medicine; FAMILY PHYSICIAN Family Medicine
DX: R11.2 Nausea with vomiting, unspecified (principal); I10 Essential (primary) hypertension; Z11.52 Encounter for screening for COVID-19; Z87.891 Personal history of nicotine dependence
CPT/HCPCS: 99284; 96360; 80053; 81003; 81015; 82962; 83605; 84484; 85025; 87040; 87086; 87502; 87811; 93005

== ENCOUNTER → 2025-01-15 15:53 | Outpatient (REF) | payer MEDICARE, OTHER, SELFPAY ==
[2025-01-15 16:27] LABS: Urine Character Clear (Clear)
[2025-01-15 16:41] LABS: Urine Red Blood Cell 0-2 /HPF (0-2); Urine Squamous Cell >30 /LPF (Few)
== END ==
LOC: REG 15:53
PROVIDERS: ATTENDING PHYSICIAN Physician Assistant
DX: N39.0 Urinary tract infection, site not specified (principal)
CPT/HCPCS: 81003; 81015; 87086; 87088; 87186